=== PATIENT | female | born 1940 | race Caucasian/White ===

== ENCOUNTER 2020-03-21 14:11 | Inpatient (IN) | payer MEDICARE ==
[~2020-03-21] VITALS: Ht 165.1 cm; Wt 81.3 kg
[~2020-03-21 14:11] MED LIST: ALLO300T PO; CLON0.5T4 PO; CRESTOR5 MG PO; FISH12002 PO; FURO-69 PO; MAGN400C PO; POTA10CA PO
[2020-03-21] MEDS ORDERED: ALPRAZolam 0.25 MG TABLET PO PRN (16:15)
[2020-03-21] MEDS ORDERED: ALBUTEROL SULFATE 2.5 MG/3 ML NEBU. NEB PRN (16:15)
[2020-03-21] MEDS ORDERED: NICOTINE POLACRILEX GUM 2 MG GUM. BC PRN (16:15)
[2020-03-21] MEDS ORDERED: BUDE0.5A11 NEB (16:26)
[2020-03-21] MEDS ORDERED: ALPR0.254 PO (16:26)
[2020-03-21] MEDS ORDERED: LACT1CAP19 PO (16:26)
[2020-03-21] MEDS ORDERED: VANC125C3 PO (16:26)
[2020-03-21] MEDS ORDERED: LIDO700A21 TP (16:26)
[2020-03-21] MEDS ORDERED: NICO2GUM5 BC (16:26)
[2020-03-21] MEDS ORDERED: PANT40TA3 PO (16:26)
[2020-03-21] MEDS ORDERED: FURO40TA4 PO (16:26)
[2020-03-21] MEDS ORDERED: OXYC1TAB15 PO (16:26)
[2020-03-21] MEDS ORDERED: ALBU2.5V5 NEB (16:26)
[2020-03-21] MEDS ORDERED: ZOLP5TAB5 PO (16:26)
[2020-03-21] MEDS ORDERED: CAPS42.513 TP (16:26)
[2020-03-21] MEDS ORDERED: CLOP75TA PO (16:26)
[2020-03-21] MEDS ORDERED: CLON0.5T4 PO (16:26)
[2020-03-21] MEDS ORDERED: NICO1PAT27 TD (16:26)
[2020-03-21] MEDS ORDERED: MULT-114 PO (16:26)
[2020-03-21] MEDS ORDERED: OMEG1CAP50 PO (16:26)
[2020-03-21] MEDS ORDERED: ASPI-630 PO (16:26)
[2020-03-21] MEDS ORDERED: GABA-586 PO (16:26)
[2020-03-21] MEDS ORDERED: ENOX40DI SQ (16:26)
[2020-03-21] MEDS: VANCOMYCIN 125 MG/2.5 ML ORAL SOLUTION. PO SCH ×2 (17:00→21:31)
[2020-03-21] MEDS ORDERED: CAPSAICIN 0.025% TOPICAL CREAM 60GM TUBE. TP PRN (17:00)
[2020-03-21 17:13] VITALS: BP 129/77
--- NOTE | 2020-03-21 18:33 | HP ---
ADMIT DATE: 03/21/2020 CHIEF COMPLAINT: The patient is a 79-year-old female patient who was transferred from [facility] to continue with antibiotic for her diverticulitis as well as vancomycin for C. diff colitis. Continue with physical and occupational therapy and nutritional support. HISTORY OF PRESENT ILLNESS: The patient was admitted to [facility] on 03/10/2020 with a complaint of abdominal pain and was diagnosed with diverticulitis. Apparently, she came to the Emergency Room with worsening of her abdominal pain that has been going on for 10 days. She rated at that time as 10/10 in severity, aching in quality, originally started about a month and half ago, but has worsened over the last 10 days. The pain radiates all over her abdomen. She stated that she does not have a bowel movement every day and does not have any extreme straining. She denied at that time any fever, chills, chest pain, shortness of breath, diarrhea or bloody stool or dysuria. She did say that she has history of diverticulitis in the past and she was extensively investigated and she has had a CT scan of the abdomen and pelvis, which showed that she had diverticulitis of the mid to distal sigmoid colon with a peridiverticular abscess measuring 3.4 x 3.1. No definite fistula to the bladder, uterus or vagina is noted. There is gas is identified within the vagina, which is nonspecific. Close followup is recommended. Has bilateral adrenal masses, indeterminate left adrenal mass measures 2.3 x 2. Findings favors benign etiology given stability since 11/01/2013. She was found also have infrarenal abdominal aortic aneurysm measuring 4.5 x 4.4 cm with dense calcified and noncalcified atheromatous plaques identified in the infrarenal abdominal aorta, previously measured 2.8 x 2.6 cm on 11/01/2013 has definitely enlarged. She was basically treated with IV fluids initially in the form of ceftriaxone and Flagyl and was started on a clear liquid diet. She was seen in consultation by the Surgical team, Infectious Disease team as well as the vascular surgeon. Her antibiotic was eventually switched to Zosyn and the interventional radiologist was consulted for possible drainage of the abscess. She was seen also in consultation by the rental manager and basically he recommended IV antibiotic and also recommended to consult the interventional radiologist for drainage. She is known to have severe peripheral vascular disease and has had stent to her right lower extremity done by Dr. Keller. She was seen also by the vascular surgeon as she has marked bluish discoloration of her right third, fourth and fifth toes and basically was diagnosed with advanced peripheral arterial disease, this is a right lower extremity, bypass graft is patent. She does have high-grade stenosis at the distal anastomosis based on the CT angiogram and underwent apparently a balloon angioplasty of the distal anastomosis to maintain bypass graft patency. She has been chronically collateralized on the left, have no symptoms of rest pain in either lower extremity. Unfortunately, while there, she also developed diarrhea and was found to be positive for C. diff toxins and therefore, she was started on oral vancomycin and once stabilized, she was transferred to [facility] swing bed. PAST MEDICAL HISTORY: Significant for congestive heart failure, coronary artery disease, peripheral vascular disease, gastroesophageal reflux disease, diverticulosis, anxiety disorder as well as type 2 diabetes. PAST SURGICAL HISTORY: Significant for stenting. She does have bypass graft to the right lower extremity. She also underwent a balloon angioplasty had bilateral cataract extraction. She also underwent esophagogastroduodenoscopy and colonoscopy about 5 years ago. FAMILY HISTORY: She has one brother who is still alive at the age of 82 and apparently continued to be functional. Her sister , although she does not know her age when she or the cause of her . Her father because of myocardial infarction at the age of 85. Mother at the age of 88 because of complication of peripheral vascular disease. SOCIAL HISTORY: She is , has moved to live with her daughter. She has 1 son and 1 daughter. She smoked 1 pack a day since she was 17 years old and continued to smoke. She does not drink alcohol or use any recreational drugs. She worked in a [employer]. ALLERGIES: She has no known drug allergies. MEDICATIONS: She was transferred to [facility] to continue on following medications: Aspirin 81 mg once a day, Pulmicort 0.5 mg/2 mL nebulizer twice a day, clonazepam 0.5 mg daily, formoterol fumarate 20 mcg/2 mL vial by nebulizer once a day, furosemide 20 mg once a day, gabapentin 300 mg once a day, multivitamin 1 tablet once a day, omega-3 fatty acid 1000 mg once a day, polyethylene glycol 17 grams once a day. She was also discharged on Augmentin 875 mg twice a day and vancomycin 125 mg 4 times a day. PHYSICAL EXAMINATION: GENERAL: When I examined her this afternoon, she was sitting comfortably in her chair, eating her dinner, in no apparent distress. She was pale, not jaundiced, cyanosis or thyromegaly. No jugular venous distention. No lower limb edema. VITAL SIGNS: Her heart rate was 84, blood pressure was 129/77, temperature was 98, respiratory rate was 22 and oxygen saturation was 94% on 4 liters of oxygen. HEAD, EYES, EARS, NOSE AND THROAT: Showed normocephalic and atraumatic. NECK: Supple. HEART: Showed normal first and second heart sounds. No gallop or murmur. CHEST: Shows central trachea, equally reduced expansion, reduced air entry, vesicular sounds, very few scattered rhonchi. I could not see any crepitation. ABDOMEN: Distended, soft, nontender. NEUROLOGIC: She is awake, alert, responding appropriately. All cranial nerves intact. EXTREMITIES: She moves extremities without difficulty. She ambulates with a walker. Her extremities showed no clubbing or edema. Her legs seem to be cyanosed, apparently has been chronic like that. LABORATORY DATA: Her most recent lab work done at [facility] showed her white cell count was 7300, hemoglobin 9.7, hematocrit 30, MCV 85 and platelet count of 158,000 with normal manual differential. On admission, her white cell count was 16,400. Her chemistry showed a serum sodium of 145, potassium 3.8, chloride 103, bicarbonate 41, anion gap of 1, BUN 9, creatinine 1.2, estimated GFR was 43 mL per minute. Her glucose was 88, calcium was 8.3. ASSESSMENT AND PLAN: In summary, this is a 79-year-old female patient who was admitted to [facility] with: 1. 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 which showed peridiverticular abscess measuring 3.4 x 3.1 cm. She has bilateral adrenal masses, indeterminate left adrenal mass measures 2.3 x 2. Findings favors benign etiology given stability since 11/01/2013. She was found to have also an infrarenal abdominal aortic aneurysm measuring 4.5 x 4.4 cm, peripheral vascular disease, status post angioplasty. Sepsis due to sigmoid diverticulosis, resolved. She is here to continue with oral antibiotic. She is known to have chronic obstructive pulmonary disease, chronic hypoxic respiratory failure. She is oxygen dependent for almost 8 years now and she has also severe peripheral vascular disease. She has also Clostridium difficile colitis, for which she is now on oral vancomycin. Apparently, she underwent right lower extremity angiography, angioplasty of the right anterior tibial artery and angioplasty of the popliteal artery and the anastomosis in the right lower extremity, femoral popliteal bypass graft. We will continue obviously with oral antibiotics in the form of Augmentin as well as vancomycin. We will continue all her other medications. We will start physical and occupational therapy. ROMAN JAMES MD DR: MAGDALENE/analy JOB#: [id number] / [id number]
[2020-03-21] MEDS: BUDESONIDE 0.5 MG/2 ML NEBU NEB SCH (20:09)
[2020-03-21 20:51] VITALS: BP 114/68
[2020-03-21] MEDS: PATCH REMOVAL. MC SCH (21:00)
[2020-03-21] MEDS: ZOLPIDEM 5 MG TABLET. PO PRN (21:31)
[2020-03-21] MEDS: LACTOBACILLUS RHAMNOSUS GG 1 CAPSULE. PO SCH (21:31)
[2020-03-21] MEDS: AMOXICILLIN/K CLAV 875/125MG TABLET. PO SCH (21:31)
[2020-03-21] MEDS: GABAPENTIN 300 MG CAPSULE. PO SCH (21:31)
[2020-03-21 23:36] VITALS: BP 96/62
[2020-03-22 05:05] VITALS: BP 88/57
[2020-03-22 06:24] VITALS: BP 98/56
[2020-03-22 06:46] LABS: HEMATOCRIT 30.2 % (36.0-47.0); HEMOGLOBIN 9.6 g/dL (12.0-15.5); RED BLOOD COUNT 3.48 x10^6/uL (3.50-5.40); WHITE BLOOD COUNT 9.6 x10^3/uL (4.0-11.0)
[2020-03-22 07:45] LABS: ALBUMIN 2.3 g/dL (3.4-5.0); ALBUMIN/GLOBULIN RATIO 0.6 (1.0-1.7); CALCIUM 8.1 mg/dL (8.5-10.1); CREATININE 1.1 mg/dL (0.6-1.0); TOTAL BILIRUBIN 0.3 mg/dL (0.2-1.0); TOTAL PROTEIN 6.1 g/dL (6.4-8.2)
[2020-03-22] MEDS: clonazePAM 0.5 MG TABLET PO SCH (08:33)
[2020-03-22] MEDS: AMOXICILLIN/K CLAV 875/125MG TABLET. PO SCH ×2 (08:33→20:47)
[2020-03-22] MEDS: MULTIVITAMIN with MINERAL TABLET. PO SCH (08:33)
[2020-03-22] MEDS: ASPIRIN CHEWABLE 81 MG TABLET. PO SCH (08:33)
[2020-03-22] MEDS: LACTOBACILLUS RHAMNOSUS GG 1 CAPSULE. PO SCH ×2 (08:33→20:47)
[2020-03-22] MEDS: PANTOPRAZOLE 40 MG TABLET. PO SCH (08:33)
[2020-03-22] MEDS: CLOPIDOGREL BISULFATE 75 MG TABLET PO SCH (08:33)
[2020-03-22] MEDS: OMEGA-3 FATTY ACIDS/FISH OIL 1,000 MG CAPSULE. PO SCH (08:33)
[2020-03-22] MEDS: ENOXAPARIN 40 MG/0.4 ML SYRINGE. SQ SCH (08:36)
[2020-03-22] MEDS: LIDOCAINE (700MG/PATCH) PATCH. TP SCH (08:36)
[2020-03-22] MEDS: NICOTINE 7MG PATCH. TD SCH (08:36)
[2020-03-22] MEDS: VANCOMYCIN 125 MG/2.5 ML ORAL SOLUTION. PO SCH ×4 (08:37→20:47)
[2020-03-22] MEDS: POTASSIUM BICARB 20 MEQ EFFERVESCENT TABLET. FT SCH ×2 (09:16→14:11)
[2020-03-22] MEDS: FUROSEMIDE 40 MG TABLET PO SCH (09:16)
[2020-03-22] MEDS: oxyCODONE/APAP 5/325 1 TAB TABLET PO PRN ×2 (09:17→19:37)
[2020-03-22] MEDS: BUDESONIDE 0.5 MG/2 ML NEBU NEB SCH ×2 (09:40→20:13)
[2020-03-22 15:39] VITALS: BP 104/67
[2020-03-22] MEDS ORDERED: POTASSIUM CHLORIDE 20 MEQ TABLET.ER. PO ONE (16:00)
--- NOTE | 2020-03-22 18:27 | PN ---
DATE: 03/22/2020 SUBJECTIVE: The patient is sitting in her chair comfortably in no apparent distress. She apparently has had 2 bowel movements, continued to have abdominal pain, but denied any nausea or vomiting. Denied any dizziness or lightheadedness. She did participate with physical therapy. PHYSICAL EXAMINATION: GENERAL: When I examined her, she was pale, but no jaundice, cyanosis or thyromegaly. No jugular venous distention. Mild bilateral lower limb edema. VITAL SIGNS: Her heart rate was 71, blood pressure was 104/67, temperature 97.5, respiratory rate was 17 and oxygen saturation was 96% on 4 liters of oxygen. HEAD, EYES, EARS, NOSE AND THROAT: Normocephalic, atraumatic. NECK: Supple. HEART: Showed normal first and second heart sounds. No gallop, rub or murmur. CHEST: Clear to auscultation. No crepitation or rhonchi. ABDOMEN: Distended, soft, nontender. No guarding or rigidity. No organomegaly. All hernial orifice intact. Bowel sounds normal. NEUROLOGIC: She is grossly intact. She ambulates with a walker. Her intake and output were incompletely recorded. LABORATORY DATA: Showed a white cell count 9600, hemoglobin 9.6, hematocrit 30, MCV 87, and platelet count of 180,000. Her serum sodium was 144, potassium 3, chloride 99, bicarbonate 44, anion gap of 1, BUN 9, creatinine 1.1, estimated GFR was 48 mL per minute. Her glucose was 92, calcium was 8.1. Total bilirubin, AST, ALT, alkaline phosphatase were normal. Total protein was 6.1, and albumin 2.3. ASSESSMENT: 1. Acute diverticulitis, which she continues to be on oral Augmentin. 2. Peridiverticular abscess measuring 3.4 x 3.1. 3. Infrarenal abdominal aortic aneurysm that is enlarging. 4. Peripheral vascular disease, status post angioplasty. 5. Sepsis due to sigmoid diverticulosis, resolved. 6. Clostridium difficile colitis, switching to oral vancomycin. 7. Chronic obstructive pulmonary disease. 8. Chronic hypoxic respiratory failure, oxygen dependent. 9. Hypokalemia. PLAN: My plan is to start potassium supplement. We will give her 40 mEq once tonight and then start her on 20 mEq 3 times a day. She is on IV Lasix and she also having diarrhea. I will repeat her labs again tomorrow to make sure the potassium is within normal range. ROMAN JAMES MD DR: MAGDALENE/analy JOB#: [id number] / [id number]
[2020-03-22 19:20] VITALS: BP 120/73
[2020-03-22] MEDS: GABAPENTIN 300 MG CAPSULE. PO SCH (20:47)
[2020-03-22] MEDS: PATCH REMOVAL. MC SCH (20:47)
[2020-03-22] MEDS: POTASSIUM CHLORIDE 20 MEQ TABLET.ER. PO SCH (20:47)
[2020-03-23 06:49] LABS: BLOOD UREA NITROGEN 6 mg/dL (7-20); CALCIUM 8.1 mg/dL (8.5-10.1); CHLORIDE 100 mmol/L (98-107); CREATININE 1.2 mg/dL (0.6-1.0); GFR 43.4; GLUCOSE 94 mg/dL (70-99); MAGNESIUM 1.7 mg/dL (1.8-2.4); SODIUM 145 mmol/L (136-145)
[2020-03-23 06:50] LABS: CARBON DIOXIDE > 45 mmol/L (21-32)
[2020-03-23 08:07] VITALS: BP 106/50
[2020-03-23] MEDS: AMOXICILLIN/K CLAV 875/125MG TABLET. PO SCH ×2 (08:47→21:36)
[2020-03-23] MEDS: ASPIRIN CHEWABLE 81 MG TABLET. PO SCH (08:47)
[2020-03-23] MEDS: POTASSIUM CHLORIDE 20 MEQ TABLET.ER. PO SCH ×3 (08:48→21:37)
[2020-03-23] MEDS: NICOTINE 7MG PATCH. TD SCH (08:48)
[2020-03-23] MEDS: OMEGA-3 FATTY ACIDS/FISH OIL 1,000 MG CAPSULE. PO SCH (08:48)
[2020-03-23] MEDS: LIDOCAINE (700MG/PATCH) PATCH. TP SCH (08:48)
[2020-03-23] MEDS: PANTOPRAZOLE 40 MG TABLET. PO SCH (08:48)
[2020-03-23] MEDS: FUROSEMIDE 40 MG TABLET PO SCH (08:48)
[2020-03-23] MEDS: CLOPIDOGREL BISULFATE 75 MG TABLET PO SCH (08:48)
[2020-03-23] MEDS: LACTOBACILLUS RHAMNOSUS GG 1 CAPSULE. PO SCH ×2 (08:48→21:37)
[2020-03-23] MEDS: MULTIVITAMIN with MINERAL TABLET. PO SCH (08:48)
[2020-03-23] MEDS: clonazePAM 0.5 MG TABLET PO SCH (08:48)
[2020-03-23] MEDS: ENOXAPARIN 40 MG/0.4 ML SYRINGE. SQ SCH (08:49)
[2020-03-23] MEDS: VANCOMYCIN 125 MG/2.5 ML ORAL SOLUTION. PO SCH ×4 (08:49→21:37)
[2020-03-23] MEDS: oxyCODONE/APAP 5/325 1 TAB TABLET PO PRN (09:32)
[2020-03-23] MEDS: BUDESONIDE 0.5 MG/2 ML NEBU NEB SCH ×2 (10:18→21:00)
--- OUTSIDE RECORDS SUMMARY | 2020-03-23 14:21 | XMS REPORT | Patient Health Record ---
Author Author [facility] Organization [facility] Address Unknown Phone Unavailable Care Team Providers Care Deli Clerk Name Role Phone LASHAWN CLAUDINE Unavailable [phone] BJORN MCINTYRE Unavailable [phone] Ghulam Pantoja Unavailable [phone] GAGAN Calloway Unavailable [phone] ALIYA GUTIERREZ Unavailable [phone] PROBLEMS Type Condition ICD9-CM Code NFL66-WE Code Onset Dates Condition S tatus SNOMED Code Notes Problem PAD (peripheral artery disease) I73.9 Active 665495928 Problem Vitamin D insufficiency E55.9 Active 80802001 Problem Gout M10.9 Active 61909490 Problem Diverticulosis K57.90 Active 507422832 Problem Cigarette nicotine dependence, uncomplicated F17.2 10 Active 11163020 Problem BMI 32.0-32.9,adult Z68.32 Active 543264455 Problem GERD (gastroesophageal reflux disease) K21.9 A ctive 627990873 Problem COPD (chronic obstructive pulmonary disease) J44.9 Active 72034798 Problem HLD (hyperlipidemia) E78.5 Active 68797529 Problem Constipation K59.00 Active 90752171 ALLERGIES No Known Allergies ENCOUNTERS from 1940 to 2020-03-23 Encounter Location Date Provider Diagnosis [facility] [place] [address] [place] [address] Feb, CLAUDINE LASHAWN [facility] [place] [address] [place] [address] Feb, CLAUDINE HARDIN Hyponatremia E87.1 ; Fatigue R53.83 ; Generalized weakness R53.1 ; PAD (peripheral artery disease) I73.9 ; Cigarette nicotine dependence, uncomplicated F17.210 ; COPD (chronic obstructive pulmonary disease) J44.9 ; HLD (hyperlipidemia) E78.5 ; Anemia D64.9 ; History of gout Z87.39 ; Hypochloremia E87.8 ; Gout M10.9 and Personal history of peptic ulcer disease Z87.11 [facility] [place] [address] [place] [address] Feb, CLAUDINE HARDIN LLQ abdominal pain R10.32 ; Fatigue R53.83 ; Generalized weakness R53.1 ; Diverticulosis K57.90 ; Varicose veins of both lower extremities I83.93 ; Constipation K59.00 ; PAD (peripheral artery disease) I73.9 ; Cigarette nicotine dependence, uncomplicated F17.210 ; COPD (chronic obstructive pulmonary disease) J44.9 ; HLD (hyperlipidemia) E78.5 and Anemia D64.9 [facility] [place] [facility] [address] [place] [address] Apr, CLAUDINE HARDIN [facility] [place] [facility] [address] [place] [address] Mar, CLAUDINE HARDIN [facility] [place] [facility] [address] [place] [address] Mar, CLAUDINE BARRONOTTE PAD (peripheral artery disea se) I73.9 ; Cigarette nicotine dependence, uncomplicated F17.210 ; COPD (chronic obstructive pulmonary disease) J44.9 ; Olecranon bursitis of right elbow M70.21 ; Effusion of right olecranon bursa M25.421 ; Leg swelling M79.89 ; GERD (gastroesophageal reflux disease) K21.9 ; Gout M10.9 ; Foot pain M79.673 ; Fatigue R53.83 and Vitamin D insufficiency E55.9 [facility] [place] [facility] [address] [place] [address] Oct, CLAUDINE BARRONOTTE Olecranon bursitis, left elb ow M70.22 ; Effusion of left elbow M25.422 ; PAD (peripheral artery disease) I73.9 and Cigarette nicotine dependence, uncomplicated F17.210 [facility] [address] [facility] [address] Jun, CLAUDINE HARDIN [facility] [address] [place] [address] Oct, CLAUDINE HARDIN PAD (peripheral artery disea se) 443.9 ; Leg swelling 729.81 ; Abdominal swelling, generalized 789.37 ; Tobacco use disorder 305.1 and Anxiety 300.00 [facility] [place] [address] [place], [place] [id number] Sep, ALIYA GUTIERREZ Proctitis 569.49 and Gastropathy 537.9 [facility] [address] [facility] [place] [address] Aug, zzzSTEWART zzzGROTE [facility] [address] [place] [address] Jun, zzzSTEWART zzzGROTE URI (upper respiratory infec tion) 465.9 ; Pharyngitis, Acute 462 ; Adenitis NOS 289.3 ; Airway obstruction, chronic, NEC 496 ; Obesity NOS 278.00 ; MALAISE AND FATIGUE NEC 780.79 ; Gouty arthritis NOS 274.9 ; Vitamin D deficiency 268.9 and Hyperlipemia 272.4 IMMUNIZATIONS Vaccine Route Administration Date Status Lidocaine 1% 10 mg / ml Unknown Apr 12, 2019 Administ ered Kenalog 40mg Unknown Apr 12, 2019 Administered Kenalog 40mg OTH Other/Miscellaneous November 04, 2018 Administ ered Lidocaine 1% 10 mg / ml OTH Other/Miscellaneous November 04, 2018 Administered SOCIAL HISTORY Sex Assigned At : Social History Observation Description Sex Assigned At Unknown REASON FOR REFERRAL from 1940 to 2020-03-23 Reason ccd Referring Provider First Name NUZHAT Referring Provider Last Name REMA Referring Provider Specialty Neurology Referring Provider email [email or web address] Referred Provider N/A, [email or web address] VITAL SIGNS from 1940 to 2020-03-23 Height 65 in Feb, Weight wheelchair lbs Feb, BMI 32.28 kg/m2 Mar, Temperature 96.8 degrees Fahrenheit Feb, Oximetry 96 % Feb, Blood pressure systolic 100 mm Hg Feb, Blood pressure diastolic 62 mm Hg Feb, MEDICATIONS Medication SIG (Take, Route, Frequency, Duration) Start Date En d Date Status allopurinol 300 mg 1 tab(s) orally once a day for 30 Active pantoprazole 40 mg 1 tab(s) orally once a day for 30 day(s) Active ASA 81mg one orally daily for 30 day(s) Active Fish Oil 1000 mg 1 cap(s) orally 2 times a day for 30 day(s) Active potassium chloride 20meq 1 cap(s) orally once a day for 3 dose(s) Active Plavix 75 mg 1 tab(s) orally once a day for 30 day(s) Not-Taking Lipitor 40 mg 1 tab(s) orally once a day for 30 day(s) Mar, Not-Taking Vitamin D 400 IU 1 tab orally once a day for 30 day(s) Active Lasix 80 mg 1 tab(s) orally once a day for 30 Active PROCEDURES No Information RESULTS No Results REASON FOR VISIT Labs, tired, weak wants labwork, constipation, stomach , med issues, lab results and new rx, meds refill, pt wants to stop PLavix, Rt elbow needs drained, pt has not been seen for over 4 years. She has developed a large pocket of fluid over left elbow a month ago. She is jaymie anxious about what you will do to her today., Message, Stomach & feet swelling x 2 weeks, wants lasix and xanax , stomach pain, Colonoscopy results from March, no new problems since colonoscopy MEDICAL (GENERAL) HISTORY Type Description Date Surgical History colonoscopy Surgical History EGD Hospitalization History No Hospitalization history informati on Goals Section No Information Health Concerns No Information MEDICAL EQUIPMENT No Information MENTAL STATUS No Information FUNCTIONAL STATUS No Information ASSESSMENTS Encounter Date Diagnosis Notes Oct, Olecranon bursitis, left elbow (ICD-10 - M70.22) Mar, Gout (ICD-10 - M10.9) Oct, PAD (peripheral artery disease) (ICD9-CM - 443.9) Jun, Vitamin D deficiency (ICD9-CM - 268.9) Feb, LLQ abdominal pain (ICD-10 - R10.32) Feb, Anemia (ICD-10 - D64.9) Mar, PAD (peripheral artery disease) (ICD-10 - I73.9) Feb, Cigarette nicotine dependence, uncomplic ated (ICD-10 - F17.210) Mar, GERD (gastroesophageal reflux disease) ( ICD-10 - K21.9) Jun, Gouty arthritis NOS (ICD9-CM - 274.9) Sep, Proctitis (ICD9-CM - 569.49) Feb, HLD (hyperlipidemia) (ICD-10 - E78.5) Jun, URI (upper respiratory infection) (ICD9- CM - 465.9) Feb, PAD (peripheral artery disease) (ICD-10 - I73.9) Feb, Diverticulitis of intestine with abscess (ICD-10 - K57.80) Feb, Hyponatremia (ICD-10 - E87.1) Feb, Diverticulitis of intestine with abscess (ICD-10 - K57.80) Feb, Diverticulitis of intestine with abscess (ICD-10 - K57.80) Feb, COPD (chronic obstructive pulmonary dise ase) (ICD-10 - J44.9) Feb, Constipation (ICD-10 - K59.00) Feb, Varicose veins of both lower extremities (ICD-10 - I83.93) Mar, Effusion of right olecranon bursa (ICD-1 0 - M25.421) Jun, MALAISE AND FATIGUE NEC (ICD9-CM - 780.7 9) Feb, Cigarette nicotine dependence, uncomplic ated (ICD-10 - F17.210) Feb, PAD (peripheral artery disease) (ICD-10 - I73.9) Feb, Diverticulosis (ICD-10 - K57.90) Oct, Anxiety (ICD9-CM - 300.00) Jun, Obesity NOS (ICD9-CM - 278.00) Mar, Leg swelling (ICD-10 - M79.89) Mar, Olecranon bursitis of right elbow (ICD-1 0 - M70.21) Feb, Generalized weakness (ICD-10 - R53.1) Mar, COPD (chronic obstructive pulmonary dise ase) (ICD-10 - J44.9) Jun, Airway obstruction, chronic, NEC (ICD9-C M - 496) Feb, Generalized weakness (ICD-10 - R53.1) Jun, Adenitis NOS (ICD9-CM - 289.3) Feb, Fatigue (ICD-10 - R53.83) Oct, PAD (peripheral artery disease) (ICD-10 - I73.9) Oct, Abdominal swelling, generalized (ICD9-CM - 789.37) Oct, Cigarette nicotine dependence, uncomplic ated (ICD-10 - F17.210) Oct, Tobacco use disorder (ICD9-CM - 305.1) Feb, Personal history of peptic ulcer disease (ICD-10 - Z87.11) Jun, Pharyngitis, Acute (ICD9-CM - 462) Feb, Anemia (ICD-10 - D64.9) Feb, Diverticulitis of intestine with abscess (ICD-10 - K57.80) Mar, Vitamin D insufficiency (ICD-10 - E55.9) Oct, Leg swelling (ICD9-CM - 729.81) Sep, Gastropathy (ICD9-CM - 537.9) Feb, Gout (ICD-10 - M10.9) Feb, Diverticulitis of intestine with abscess (ICD-10 - K57.80) Mar, Fatigue (ICD-10 - R53.83) Feb, History of gout (ICD-10 - Z87.39) Feb, Diverticulitis (ICD-10 - K57.92) Feb, Hypochloremia (ICD-10 - E87.8) Feb, Diverticulitis (ICD-10 - K57.92) Feb, HLD (hyperlipidemia) (ICD-10 - E78.5) Mar, Cigarette nicotine dependence, uncomplic ated (ICD-10 - F17.210) Oct, Effusion of left elbow (ICD-10 - M25.422 ) Feb, Fatigue (ICD-10 - R53.83) Jun, Hyperlipemia (ICD9-CM - 272.4) Feb, COPD (chronic obstructive pulmonary dise ase) (ICD-10 - J44.9) Mar, Foot pain (ICD-10 - M79.673) PLAN OF TREATMENT Treatment Notes Assessment Notes Clinical Notes Generalized weakness She had concerns about dehyd ration. Labs today. Hold lasix for a couple days. Continue pushing water intake. No evidence of dehydration currently. COPD (chronic obstructive pulmonary disease) On oxygen. Sees Dr Grace. Cigarette nicotine dependence, uncomplicated she is on oxyge n due to smoking Generalized weakness Rechecking labs today. I di d give her an order for Rollator walker with wheels and seat for her to try and get some more exercise and to get moving around a little more frequently. PAD (peripheral artery disease) Only taking plavix a c ouple times per week according to patient. Something we are going to monitor Olecranon bursitis of right elbow Aspiration done toda y at the right elbow. Cleaned with iodine and injected 2mL of lidocaine. Used a 22g needle and while leaving it in, we aspirated 17.5mL of fluid off the elbow/bursa. She tolerated well and we injected then into the same needle 1mL kenalog. No evidence of infection. The aspiration was serous fluid mixed with some blood. No cultures sent off since it was okay and last check on left elbow was okay as well. Effusion of right olecranon bursa Recommended elbow pa ds to use and avoid resting/bumping on hard surface. Anxiety She used to be on Xanax. We will see how she does with the Klonopin. If she is needing this regularly, we may want to try an SSRI. Anemia Checking for labs. Vitamin D insufficiency Checking for lab purposes. PAD (peripheral artery disease) on plavix but she does n't take it every day. she substitutes with ASA when she does not take it. she does have history of GI bleed, so that has to be monitored closely. Abdominal swelling, generalized She mentions that she did have a liver workup which was okay. I will see what her LFT's look like on labs today. Personal history of peptic ulcer disease . monitoring this with her hemoglobin and infrequent use of Plavix Foot pain Stopping IBU with GI history. Trial natan pentin. Proctitis Reviewed colonoscopy results as well as EGD results and biopsies discussed general: Health and her diet. Recommended fiber therapy which she is taking Metamucil. Due to her family history of colon cancer have recommended a follow-up colonoscopy in 5 years. All of her questions were answered to her satisfaction. Total time 13 minutes Anemia Hemoglobin at 10.9. Recheck ing today. Her ferritin levels were high and iron levels were low on her last check with mildly elevated TIBC PAD (peripheral artery disease) Set up with cardiology referral for further evaluation as I would be concerned about CAD as well. I want to get further workup with this. I will probably want to look at starting her on cholesterol medication as I did check her former cholesterol are lab level and her LDL was 155. We will most likely set her up with a statin therapy when I get lab results back. I also want to see a vehicle leasing and rental manager orders but she may need stress testing and possibly an echocardiogram. I did pull up a previous CT scan of her chest from a year ago and it didn't necessarily show any overt enlargement of her heart. History of gout . remains on allopurinol due to concerns of gout. Since she has not had any issues with a flare in quite some time. I am rechecking her uric acid levels and want her to try cutting her allopurinol in half for now. I do see a uric acid level in normal range at 5.5 last year in March 2019 Olecranon bursitis, left elbow bursal effusion which w e aspirated. Cleansed area with iodine and injected 2.5mL lidocaine into the area to numb. with the same needle in place, we then aspirated 20mL of yellow serous drainage. no purulent discharge or infection noted. we will send that off for culture and anaylsis. since there is no evidence of infection, we then place 1mL kenalog into the same site with the same needle without removing. she tolerated well. rest elbow and avoid hard surfaces. f/u if recurrence or pain. COPD (chronic obstructive pulmonary disease) On oxygen. PAD (peripheral artery disease) on plavix but she does n't take it every day. she substitutes with ASA when she does not take it. she does have history of GI bleed, so that has to be monitored closely. She would like to stop Plavix but I think with previous stent placement, stay on her current regimen of Plavix most days and substitute with ASA if she does not take it on a particular day. Not going to have her take both daily with history of GI bleed. HLD (hyperlipidemia) Not on cholesterol medicatio n. Checking lipids with her PAD. LLQ abdominal pain She says her abd pain is bet ter but still lingering some with LLQ. Took laxative that helped last week. Doing workup with labs to rule out infection or need for CT scan. Can proceed with that if there is any indication. Watch constipation. Continue Metamucil. Can take miralax prn. Fatigue Routine labs today. Hyponatremia Rechecking labs today. I wa nt her to decrease her Lasix to just a quarter of a pill on an as-needed basis when she does take it to try and limit higher doses. Still take the potassium anytime she takes the Lasix. Leg swelling We will start this temporari ly for now while further labs are pending. Hypochloremia . recheck toda COPD (chronic obstructive pulmonary disease) On oxygen. HLD (hyperlipidemia) Not on cholesterol medicatio n. Her cholesterol numbers are extremely high but she cannot tolerate statins. Perhaps Repatha is an option PAD (peripheral artery disease) Only taking plavix a c ouple times per week according to patient. Cigarette nicotine dependence, uncomplicated she is on oxyge n due to smoking Fatigue Labs today Fatigue Labs today Treatment Notes Test Name Order Date BASIC METABOLIC PANEL 2020-03-23 Referrals Referral Date Details edema, MELISSA PASNOORI, [address] [facility], [place], [place], [id number], [facility] Insurance Providers Payer Name Payer Address Payer Phone Insured Name Patient Relati onship to Insured Coverage Start Date Coverage End Date [place] [address] [facility] [phone] Nancy Carpenter self
[2020-03-23 20:59] VITALS: BP 102/63
[2020-03-23] MEDS: PATCH REMOVAL. MC SCH (21:00)
[2020-03-23] MEDS: GABAPENTIN 300 MG CAPSULE. PO SCH (21:36)
[2020-03-24 08:06] VITALS: BP 129/50
[2020-03-24] MEDS: LIDOCAINE (700MG/PATCH) PATCH. TP SCH (09:10)
[2020-03-24] MEDS: NICOTINE 7MG PATCH. TD SCH (09:10)
[2020-03-24] MEDS: ENOXAPARIN 40 MG/0.4 ML SYRINGE. SQ SCH (09:10)
[2020-03-24] MEDS: OMEGA-3 FATTY ACIDS/FISH OIL 1,000 MG CAPSULE. PO SCH (09:11)
[2020-03-24] MEDS: AMOXICILLIN/K CLAV 875/125MG TABLET. PO SCH ×2 (09:11→20:33)
[2020-03-24] MEDS: MULTIVITAMIN with MINERAL TABLET. PO SCH (09:11)
[2020-03-24] MEDS: oxyCODONE/APAP 5/325 1 TAB TABLET PO PRN (09:11)
[2020-03-24] MEDS: LACTOBACILLUS RHAMNOSUS GG 1 CAPSULE. PO SCH ×2 (09:11→20:33)
[2020-03-24] MEDS: PANTOPRAZOLE 40 MG TABLET. PO SCH (09:11)
[2020-03-24] MEDS: ASPIRIN CHEWABLE 81 MG TABLET. PO SCH (09:11)
[2020-03-24] MEDS: POTASSIUM CHLORIDE 20 MEQ TABLET.ER. PO SCH ×3 (09:11→20:33)
[2020-03-24] MEDS: CLOPIDOGREL BISULFATE 75 MG TABLET PO SCH (09:11)
[2020-03-24] MEDS: clonazePAM 0.5 MG TABLET PO SCH (09:11)
[2020-03-24] MEDS: FUROSEMIDE 40 MG TABLET PO SCH (09:12)
[2020-03-24] MEDS: VANCOMYCIN 125 MG/2.5 ML ORAL SOLUTION. PO SCH ×4 (09:15→20:34)
[2020-03-24] MEDS: BUDESONIDE 0.5 MG/2 ML NEBU NEB SCH ×2 (09:49→20:25)
[2020-03-24] MEDS: GABAPENTIN 300 MG CAPSULE. PO SCH (20:33)
[2020-03-24] MEDS: PATCH REMOVAL. MC SCH (21:00)
[2020-03-24 21:28] VITALS: BP 100/58
[2020-03-25 08:11] VITALS: BP 101/51
[2020-03-25] MEDS: AMOXICILLIN/K CLAV 875/125MG TABLET. PO SCH ×2 (08:25→20:44)
[2020-03-25] MEDS: MULTIVITAMIN with MINERAL TABLET. PO SCH (08:25)
[2020-03-25] MEDS: OMEGA-3 FATTY ACIDS/FISH OIL 1,000 MG CAPSULE. PO SCH (08:25)
[2020-03-25] MEDS: PANTOPRAZOLE 40 MG TABLET. PO SCH (08:26)
[2020-03-25] MEDS: FUROSEMIDE 40 MG TABLET PO SCH (08:26)
[2020-03-25] MEDS: LACTOBACILLUS RHAMNOSUS GG 1 CAPSULE. PO SCH ×2 (08:26→20:44)
[2020-03-25] MEDS: ENOXAPARIN 40 MG/0.4 ML SYRINGE. SQ SCH (08:27)
[2020-03-25] MEDS: LIDOCAINE (700MG/PATCH) PATCH. TP SCH (08:27)
[2020-03-25] MEDS: ASPIRIN CHEWABLE 81 MG TABLET. PO SCH (08:27)
[2020-03-25] MEDS: CLOPIDOGREL BISULFATE 75 MG TABLET PO SCH (08:27)
[2020-03-25] MEDS: NICOTINE 7MG PATCH. TD SCH (08:27)
[2020-03-25] MEDS: POTASSIUM CHLORIDE 20 MEQ TABLET.ER. PO SCH ×3 (08:28→20:44)
[2020-03-25] MEDS: clonazePAM 0.5 MG TABLET PO SCH (08:33)
[2020-03-25] MEDS: VANCOMYCIN 125 MG/2.5 ML ORAL SOLUTION. PO SCH ×4 (09:13→20:44)
[2020-03-25] MEDS: BUDESONIDE 0.5 MG/2 ML NEBU NEB SCH ×2 (13:08→20:29)
[2020-03-25 14:22] LABS: BASO % 0 % (0-3); EOS % 0 % (0-3); HEMATOCRIT 31.2 % (36.0-47.0); HEMOGLOBIN 9.8 g/dL (12.0-15.5); LYMPH % 10 % (24-48); MEAN CORPUSCULAR HEMOGLOBIN 28 pg (25-35); MEAN CORPUSCULAR HGB CONC 31 g/dL (31-37); MEAN CORPUSCULAR VOLUME 88 fL (79-100); MONO # 0.5 x10^3/uL (0.0-1.1); MONO % 5 % (0-9); NEUT % 85 % (31-73); PLATELET COUNT 205 x10^3/uL (140-400); RED BLOOD COUNT 3.56 x10^6/uL (3.50-5.40); RED CELL DISTRIBUTION WIDTH 16.6 % (11.5-14.5); WHITE BLOOD COUNT 10.6 x10^3/uL (4.0-11.0)
[2020-03-25 14:26] LABS: CALCIUM 8.2 mg/dL (8.5-10.1); CREATININE 1.4 mg/dL (0.6-1.0); GFR 36.4; POTASSIUM 3.9 mmol/L (3.5-5.1)
[2020-03-25 14:32] LABS: ALBUMIN 2.5 g/dL (3.4-5.0); ALBUMIN/GLOBULIN RATIO 0.6 (1.0-1.7); TOTAL BILIRUBIN 0.3 mg/dL (0.2-1.0); TOTAL PROTEIN 6.7 g/dL (6.4-8.2)
[2020-03-25 20:30] VITALS: BP 127/68
[2020-03-25] MEDS: oxyCODONE/APAP 5/325 1 TAB TABLET PO PRN (20:44)
[2020-03-25] MEDS: GABAPENTIN 300 MG CAPSULE. PO SCH (20:44)
[2020-03-25] MEDS: ZOLPIDEM 5 MG TABLET. PO PRN (20:44)
[2020-03-25] MEDS: PATCH REMOVAL. MC SCH (21:00)
[2020-03-26 08:00] VITALS: BP 110/52
[2020-03-26] MEDS: VANCOMYCIN 125 MG/2.5 ML ORAL SOLUTION. PO SCH ×4 (09:00→21:00)
[2020-03-26] MEDS: ENOXAPARIN 40 MG/0.4 ML SYRINGE. SQ SCH (09:00)
[2020-03-26] MEDS: AMOXICILLIN/K CLAV 875/125MG TABLET. PO SCH ×2 (09:27→21:00)
[2020-03-26] MEDS: POTASSIUM CHLORIDE 20 MEQ TABLET.ER. PO SCH ×3 (09:28→21:00)
[2020-03-26] MEDS: LACTOBACILLUS RHAMNOSUS GG 1 CAPSULE. PO SCH ×2 (09:28→21:00)
[2020-03-26] MEDS: PANTOPRAZOLE 40 MG TABLET. PO SCH (09:28)
[2020-03-26] MEDS: MULTIVITAMIN with MINERAL TABLET. PO SCH (09:29)
[2020-03-26] MEDS: CLOPIDOGREL BISULFATE 75 MG TABLET PO SCH (09:29)
[2020-03-26] MEDS: OMEGA-3 FATTY ACIDS/FISH OIL 1,000 MG CAPSULE. PO SCH (09:29)
[2020-03-26] MEDS: clonazePAM 0.5 MG TABLET PO SCH (09:29)
[2020-03-26] MEDS: BUDESONIDE 0.5 MG/2 ML NEBU NEB SCH ×2 (09:29→20:00)
[2020-03-26] MEDS: FUROSEMIDE 40 MG TABLET PO SCH (09:29)
[2020-03-26] MEDS: ASPIRIN CHEWABLE 81 MG TABLET. PO SCH (09:30)
[2020-03-26] MEDS: NICOTINE 7MG PATCH. TD SCH (09:31)
[2020-03-26] MEDS: LIDOCAINE (700MG/PATCH) PATCH. TP SCH (09:31)
--- NOTE | 2020-03-26 15:19 | RAD ---
CHEST AP ONLY History: Reason: worseneing shortness of breath / Spl. Instructions: / History: Comparison: November 30, [address] December 01, 2014 Findings: Bilateral interstitial thickening. No pleural effusion. Unchanged heart size. Right PICC with tip projecting over the cavoatrial junction. Postop changes left axilla. Impression: 1. Diffuse initial thickening, may relate to chronic interstitial changes although superimposed pulmonary edema or infection is possible. 2. Right PICC with tip projecting over the cavoatrial junction. Electronically signed by: Jerrell Stiles DO (03/26/2020 3:16 PM) [id number]
[2020-03-26 19:51] VITALS: BP 107/51
--- NOTE | 2020-03-26 20:38 | PN ---
DATE: 03/26/2020 SUBJECTIVE: The patient is sitting at the edge of the bed, complaining of being somewhat tired and short of breath. Cough is mostly dry with scanty whitish sputum. Denied any chest pain, denied any chills, rigors or fever. She did have 2 loose bowel movements, but denied any abdominal pain. PHYSICAL EXAMINATION: GENERAL: When I saw her this afternoon, she looked pale, no jaundice, cyanosis or thyromegaly. No jugular venous distention. No limb edema. VITAL SIGNS: Her heart rate was 71, blood pressure was 110/52, temperature was 98.4, respiratory rate 22, and oxygen saturation was 95% on 4 liters of oxygen. HEAD, EYES, EARS, NOSE AN THROAT: Normocephalic, atraumatic. NECK: Supple. HEART: Showed normal first and second heart sounds. No gallop, rub or murmur. CHEST: Shows central trachea, equal expansion, reduced air entry, vesicular sounds with bilateral basal crepitation. I could not appreciate any rhonchi. ABDOMEN: Distended, soft, nontender. No guarding or rigidity. No organomegaly. All hernial orifice intact. Bowel sounds normal. NEUROLOGIC: She is awake, alert, responding appropriately. She ambulates with a walker with standby assist. Her intake over the last 24 hours was 2200, no output was recorded. LABORATORY DATA: Her most recent lab work as of yesterday showed a white cell count of 10,600, hemoglobin 9.8, hematocrit 31, MCV 88, and platelet count 205,000. Her chemistry showed a serum sodium of 136, potassium 3.9, chloride 94, bicarbonate 44, anion gap of 2, BUN 11, creatinine 1.4, estimated GFR was 36 mL per minute. Her glucose 117, calcium was 8.2. Total bilirubin, AST, ALT, alkaline phosphatase were normal. Total protein 6.7, albumin was 2.5. ASSESSMENT: 1. Acute diverticulitis for which she continues to be on oral Augmentin. 2. Peridiverticular abscess measuring 3.4 x 3.1. 3. Infrarenal abdominal aortic aneurysm that is enlarging. 4. Peripheral vascular disease, status post angioplasty. 5. Sepsis due to sigmoid diverticulitis, resolved. 6. Clostridium difficile colitis for which she is now on oral vancomycin. 7. Chronic obstructive pulmonary disease. 8. Chronic hypoxic respiratory failure, oxygen dependent. 9. Hypokalemia. PLAN: My plan is to basically arrange for a chest x-ray. I will repeat her labs including CBC, CMP and BMP as she has a PICC line. I will switch her to IV Lasix tomorrow morning and see how she responds to that. ROMAN JAMES MD DR: MAGDALENE/analy JOB#: [id number] / [id number]
[2020-03-26] MEDS: PATCH REMOVAL. MC SCH (20:59)
[2020-03-26] MEDS: GABAPENTIN 300 MG CAPSULE. PO SCH (21:00)
[2020-03-27 06:15] LABS: HEMATOCRIT 32.8 % (36.0-47.0); HEMOGLOBIN 10.5 g/dL (12.0-15.5); RED BLOOD COUNT 3.76 x10^6/uL (3.50-5.40); RED CELL DISTRIBUTION WIDTH 17.6 % (11.5-14.5); WHITE BLOOD COUNT 9.4 x10^3/uL (4.0-11.0)
[2020-03-27 06:30] LABS: ALBUMIN 2.6 g/dL (3.4-5.0); ALBUMIN/GLOBULIN RATIO 0.6 (1.0-1.7); CALCIUM 8.5 mg/dL (8.5-10.1); CREATININE 1.4 mg/dL (0.6-1.0); GFR 36.4; POTASSIUM 3.9 mmol/L (3.5-5.1); TOTAL BILIRUBIN 0.3 mg/dL (0.2-1.0); TOTAL PROTEIN 7.3 g/dL (6.4-8.2)
[2020-03-27] MEDS ORDERED: ALTEPLASE 2 MG VIAL INT CAT ONE (07:00)
[2020-03-27] MEDS: BUDESONIDE 0.5 MG/2 ML NEBU NEB SCH ×2 (08:00→20:19)
[2020-03-27 08:12] VITALS: BP 111/49
[2020-03-27] MEDS ORDERED: FUROSEMIDE 40 MG/4 ML VIAL IVP ONE (08:30)
[2020-03-27] MEDS: NICOTINE 7MG PATCH. TD SCH (08:34)
[2020-03-27] MEDS: MULTIVITAMIN with MINERAL TABLET. PO SCH (08:34)
[2020-03-27] MEDS: ENOXAPARIN 40 MG/0.4 ML SYRINGE. SQ SCH (08:34)
[2020-03-27] MEDS: clonazePAM 0.5 MG TABLET PO SCH (08:34)
[2020-03-27] MEDS: OMEGA-3 FATTY ACIDS/FISH OIL 1,000 MG CAPSULE. PO SCH (08:34)
[2020-03-27] MEDS: LACTOBACILLUS RHAMNOSUS GG 1 CAPSULE. PO SCH ×2 (08:34→20:10)
[2020-03-27] MEDS: ASPIRIN CHEWABLE 81 MG TABLET. PO SCH (08:35)
[2020-03-27] MEDS: CLOPIDOGREL BISULFATE 75 MG TABLET PO SCH (08:35)
[2020-03-27] MEDS: PANTOPRAZOLE 40 MG TABLET. PO SCH (08:35)
[2020-03-27] MEDS: AMOXICILLIN/K CLAV 875/125MG TABLET. PO SCH ×2 (08:35→20:10)
[2020-03-27] MEDS: LIDOCAINE (700MG/PATCH) PATCH. TP SCH (08:35)
[2020-03-27] MEDS: POTASSIUM CHLORIDE 20 MEQ TABLET.ER. PO SCH ×3 (08:35→20:10)
[2020-03-27] MEDS: VANCOMYCIN 125 MG/2.5 ML ORAL SOLUTION. PO SCH ×4 (08:35→20:11)
[2020-03-27 19:10] VITALS: BP 116/48
[2020-03-27] MEDS: PATCH REMOVAL. MC SCH (20:10)
[2020-03-27] MEDS: GABAPENTIN 300 MG CAPSULE. PO SCH (20:10)
[2020-03-28 07:46] VITALS: BP 123/55
[2020-03-28] MEDS: LIDOCAINE (700MG/PATCH) PATCH. TP SCH (07:48)
[2020-03-28] MEDS: NICOTINE 7MG PATCH. TD SCH (07:48)
[2020-03-28] MEDS: ENOXAPARIN 40 MG/0.4 ML SYRINGE. SQ SCH (07:48)
[2020-03-28] MEDS: AMOXICILLIN/K CLAV 875/125MG TABLET. PO SCH ×2 (07:49→20:18)
[2020-03-28] MEDS: POTASSIUM CHLORIDE 20 MEQ TABLET.ER. PO SCH ×3 (07:49→20:18)
[2020-03-28] MEDS: MULTIVITAMIN with MINERAL TABLET. PO SCH (07:49)
[2020-03-28] MEDS: clonazePAM 0.5 MG TABLET PO SCH (07:49)
[2020-03-28] MEDS: LACTOBACILLUS RHAMNOSUS GG 1 CAPSULE. PO SCH ×2 (07:49→20:18)
[2020-03-28] MEDS: OMEGA-3 FATTY ACIDS/FISH OIL 1,000 MG CAPSULE. PO SCH (07:49)
[2020-03-28] MEDS: VANCOMYCIN 125 MG/2.5 ML ORAL SOLUTION. PO SCH ×4 (07:49→20:18)
[2020-03-28] MEDS: ASPIRIN CHEWABLE 81 MG TABLET. PO SCH (07:50)
[2020-03-28] MEDS: PANTOPRAZOLE 40 MG TABLET. PO SCH (07:50)
[2020-03-28] MEDS: CLOPIDOGREL BISULFATE 75 MG TABLET PO SCH (07:50)
[2020-03-28] MEDS: BUDESONIDE 0.5 MG/2 ML NEBU NEB SCH ×2 (08:00→20:40)
[2020-03-28] MEDS: FUROSEMIDE 40 MG TABLET PO SCH (08:02)
[2020-03-28 20:14] VITALS: BP 108/28
[2020-03-28] MEDS: GABAPENTIN 300 MG CAPSULE. PO SCH (20:18)
[2020-03-28] MEDS: PATCH REMOVAL. MC SCH (20:18)
[2020-03-29 07:25] VITALS: BP 105/46
[2020-03-29] MEDS: ENOXAPARIN 40 MG/0.4 ML SYRINGE. SQ SCH (08:02)
[2020-03-29] MEDS: ASPIRIN CHEWABLE 81 MG TABLET. PO SCH (08:02)
[2020-03-29] MEDS: PANTOPRAZOLE 40 MG TABLET. PO SCH (08:02)
[2020-03-29] MEDS: OMEGA-3 FATTY ACIDS/FISH OIL 1,000 MG CAPSULE. PO SCH (08:02)
[2020-03-29] MEDS: LACTOBACILLUS RHAMNOSUS GG 1 CAPSULE. PO SCH ×2 (08:02→20:37)
[2020-03-29] MEDS: MULTIVITAMIN with MINERAL TABLET. PO SCH (08:02)
[2020-03-29] MEDS: AMOXICILLIN/K CLAV 875/125MG TABLET. PO SCH ×2 (08:02→20:37)
[2020-03-29] MEDS: clonazePAM 0.5 MG TABLET PO SCH (08:02)
[2020-03-29] MEDS: CLOPIDOGREL BISULFATE 75 MG TABLET PO SCH (08:02)
[2020-03-29] MEDS: POTASSIUM CHLORIDE 20 MEQ TABLET.ER. PO SCH ×3 (08:02→20:37)
[2020-03-29] MEDS: LIDOCAINE (700MG/PATCH) PATCH. TP SCH (08:03)
[2020-03-29] MEDS: NICOTINE 7MG PATCH. TD SCH (08:03)
[2020-03-29] MEDS: FUROSEMIDE 40 MG TABLET PO SCH (08:06)
[2020-03-29] MEDS: VANCOMYCIN 125 MG/2.5 ML ORAL SOLUTION. PO SCH ×4 (09:08→20:37)
[2020-03-29] MEDS: BUDESONIDE 0.5 MG/2 ML NEBU NEB SCH ×2 (11:06→20:26)
[2020-03-29 20:00] VITALS: BP 94/36
[2020-03-29] MEDS: PATCH REMOVAL. MC SCH (20:37)
[2020-03-29] MEDS: GABAPENTIN 300 MG CAPSULE. PO SCH (20:37)
[2020-03-30 08:51] VITALS: BP 112/46
[2020-03-30] MEDS: FUROSEMIDE 40 MG TABLET PO SCH (08:59)
[2020-03-30] MEDS: clonazePAM 0.5 MG TABLET PO SCH (08:59)
[2020-03-30] MEDS: ASPIRIN CHEWABLE 81 MG TABLET. PO SCH (08:59)
[2020-03-30] MEDS: NICOTINE 7MG PATCH. TD SCH (08:59)
[2020-03-30] MEDS: OMEGA-3 FATTY ACIDS/FISH OIL 1,000 MG CAPSULE. PO SCH (08:59)
[2020-03-30] MEDS: LIDOCAINE (700MG/PATCH) PATCH. TP SCH (08:59)
[2020-03-30] MEDS: ENOXAPARIN 40 MG/0.4 ML SYRINGE. SQ SCH (08:59)
[2020-03-30] MEDS: MULTIVITAMIN with MINERAL TABLET. PO SCH (08:59)
[2020-03-30] MEDS: PANTOPRAZOLE 40 MG TABLET. PO SCH (08:59)
[2020-03-30] MEDS: POTASSIUM CHLORIDE 20 MEQ TABLET.ER. PO SCH ×3 (09:00→20:08)
[2020-03-30] MEDS: AMOXICILLIN/K CLAV 875/125MG TABLET. PO SCH ×2 (09:00→20:08)
[2020-03-30] MEDS: CLOPIDOGREL BISULFATE 75 MG TABLET PO SCH (09:00)
[2020-03-30] MEDS: VANCOMYCIN 125 MG/2.5 ML ORAL SOLUTION. PO SCH ×4 (09:00→20:08)
[2020-03-30] MEDS: LACTOBACILLUS RHAMNOSUS GG 1 CAPSULE. PO SCH ×2 (09:00→20:08)
[2020-03-30] MEDS: BUDESONIDE 0.5 MG/2 ML NEBU NEB SCH ×2 (11:35→20:26)
[2020-03-30] MEDS: GABAPENTIN 300 MG CAPSULE. PO SCH (20:07)
[2020-03-30] MEDS: oxyCODONE/APAP 5/325 1 TAB TABLET PO PRN (20:08)
[2020-03-30] MEDS: PATCH REMOVAL. MC SCH (20:10)
[2020-03-30 20:15] VITALS: BP 112/30
[2020-03-31 08:10] VITALS: BP 81/61
[2020-03-31] MEDS: CLOPIDOGREL BISULFATE 75 MG TABLET PO SCH (08:12)
[2020-03-31] MEDS: MULTIVITAMIN with MINERAL TABLET. PO SCH (08:12)
[2020-03-31] MEDS: ENOXAPARIN 40 MG/0.4 ML SYRINGE. SQ SCH (08:12)
[2020-03-31] MEDS: AMOXICILLIN/K CLAV 875/125MG TABLET. PO SCH (08:12)
[2020-03-31] MEDS: POTASSIUM CHLORIDE 20 MEQ TABLET.ER. PO SCH ×3 (08:12→20:53)
[2020-03-31] MEDS: ASPIRIN CHEWABLE 81 MG TABLET. PO SCH (08:12)
[2020-03-31] MEDS: OMEGA-3 FATTY ACIDS/FISH OIL 1,000 MG CAPSULE. PO SCH (08:13)
[2020-03-31] MEDS: clonazePAM 0.5 MG TABLET PO SCH (08:13)
[2020-03-31] MEDS: LACTOBACILLUS RHAMNOSUS GG 1 CAPSULE. PO SCH ×2 (08:13→20:52)
[2020-03-31] MEDS: FUROSEMIDE 40 MG TABLET PO SCH (08:13)
[2020-03-31] MEDS: LIDOCAINE (700MG/PATCH) PATCH. TP SCH (08:13)
[2020-03-31] MEDS: PANTOPRAZOLE 40 MG TABLET. PO SCH (08:13)
[2020-03-31] MEDS: VANCOMYCIN 125 MG/2.5 ML ORAL SOLUTION. PO SCH ×4 (08:14→20:52)
[2020-03-31] MEDS: NICOTINE 7MG PATCH. TD SCH (09:00)
[2020-03-31 09:07] VITALS: BP 111/41
[2020-03-31] MEDS: BUDESONIDE 0.5 MG/2 ML NEBU NEB SCH ×2 (10:16→20:00)
[2020-03-31 17:36] VITALS: BP 114/60
[2020-03-31] MEDS: GABAPENTIN 300 MG CAPSULE. PO SCH (20:53)
[2020-03-31] MEDS: PATCH REMOVAL. MC SCH (21:00)
[2020-03-31 21:05] VITALS: BP 96/51
[2020-04-01 07:55] VITALS: BP 112/35
[2020-04-01] MEDS: BUDESONIDE 0.5 MG/2 ML NEBU NEB SCH ×3 (08:00→20:08)
[2020-04-01] MEDS: POTASSIUM CHLORIDE 20 MEQ TABLET.ER. PO SCH ×3 (08:59→20:00)
[2020-04-01] MEDS: LACTOBACILLUS RHAMNOSUS GG 1 CAPSULE. PO SCH ×2 (08:59→20:00)
[2020-04-01] MEDS: ASPIRIN CHEWABLE 81 MG TABLET. PO SCH (08:59)
[2020-04-01] MEDS: MULTIVITAMIN with MINERAL TABLET. PO SCH (08:59)
[2020-04-01] MEDS: CLOPIDOGREL BISULFATE 75 MG TABLET PO SCH (09:00)
[2020-04-01] MEDS: OMEGA-3 FATTY ACIDS/FISH OIL 1,000 MG CAPSULE. PO SCH (09:00)
[2020-04-01] MEDS: PANTOPRAZOLE 40 MG TABLET. PO SCH (09:00)
[2020-04-01] MEDS: clonazePAM 0.5 MG TABLET PO SCH (09:00)
[2020-04-01] MEDS: ENOXAPARIN 40 MG/0.4 ML SYRINGE. SQ SCH (09:01)
[2020-04-01] MEDS: VANCOMYCIN 125 MG/2.5 ML ORAL SOLUTION. PO SCH ×4 (09:01→20:01)
[2020-04-01] MEDS: FUROSEMIDE 40 MG TABLET PO SCH (09:01)
[2020-04-01] MEDS: LIDOCAINE (700MG/PATCH) PATCH. TP SCH (09:02)
[2020-04-01] MEDS: NICOTINE 7MG PATCH. TD SCH (09:04)
[2020-04-01] MEDS: oxyCODONE/APAP 5/325 1 TAB TABLET PO PRN (19:38)
[2020-04-01] MEDS: ZOLPIDEM 5 MG TABLET. PO PRN (20:00)
[2020-04-01] MEDS: GABAPENTIN 300 MG CAPSULE. PO SCH (20:00)
[2020-04-01 21:00] VITALS: BP 108/58
[2020-04-01] MEDS: PATCH REMOVAL. MC SCH (21:00)
[2020-04-02 07:54] VITALS: BP 107/39
[2020-04-02] MEDS: LIDOCAINE (700MG/PATCH) PATCH. TP SCH (07:58)
[2020-04-02] MEDS: OMEGA-3 FATTY ACIDS/FISH OIL 1,000 MG CAPSULE. PO SCH (07:59)
[2020-04-02] MEDS: ASPIRIN CHEWABLE 81 MG TABLET. PO SCH (07:59)
[2020-04-02] MEDS: clonazePAM 0.5 MG TABLET PO SCH (07:59)
[2020-04-02] MEDS: POTASSIUM CHLORIDE 20 MEQ TABLET.ER. PO SCH (07:59)
[2020-04-02] MEDS: PANTOPRAZOLE 40 MG TABLET. PO SCH (07:59)
[2020-04-02] MEDS: LACTOBACILLUS RHAMNOSUS GG 1 CAPSULE. PO SCH (07:59)
[2020-04-02] MEDS: CLOPIDOGREL BISULFATE 75 MG TABLET PO SCH (07:59)
[2020-04-02] MEDS: MULTIVITAMIN with MINERAL TABLET. PO SCH (07:59)
[2020-04-02] MEDS: VANCOMYCIN 125 MG/2.5 ML ORAL SOLUTION. PO SCH (08:00)
[2020-04-02] MEDS: NICOTINE 7MG PATCH. TD SCH (08:02)
[2020-04-02] MEDS: FUROSEMIDE 40 MG TABLET PO SCH (09:00)
[2020-04-02] MEDS: ENOXAPARIN 40 MG/0.4 ML SYRINGE. SQ SCH (09:00)
--- NOTE | 2020-04-02 11:06 | DS ---
DATE OF DISCHARGE: 04/02/2020 ATTENDING PHYSICIAN: Dr. Morocho. FINAL DISCHARGE DIAGNOSES: 1. Acute diverticulitis of sigmoid colon. 2. Sepsis syndrome, resolved. 3. Clostridium difficile pseudomembranous enterocolitis, treated. 4. Chronic obstructive pulmonary disease, oxygen dependent. 5. History of 4.5 x 4.4 cm infrarenal abdominal aortic aneurysm, being monitored, asymptomatic at this time. 6. Peripheral vascular disease. 7. Generalized debilitation. HISTORY OF PRESENT ILLNESS: This is a 79-year-old female with multiple medical issues. She had an episode of diverticulitis at [facility]. She was treated there and transferred here for further continuation and completion of her antibiotic course. She also developed an antibiotic-associated diarrhea with a positive C. difficile toxin. PHYSICAL EXAMINATION: Please see the dictated note. PERTINENT LABORATORY AND X-RAY STUDIES: Prior to discharge, she had stable hemoglobin of 10.5 g/dL with white count of 9400. Chemistry panel for followup showed a creatinine of 1.4 mg/dL, BUN of 9. Electrolytes within normal range. CO2 was 43 relative to COPD. The BNP was elevated at 4588. COURSE IN THE HOSPITAL: The patient was admitted. She was treated and finished her course of antibiotics. She also finished a 10-day course of oral vancomycin with improvement of her Clostridium difficile enterocolitis. On the 13th hospital day, her vital signs are stable. She was ready for discharge. At this time, she should continue her albuterol at home, aspirin 1 daily 81 mg, budesonide, capsaicin topical cream, Klonopin 0.5 mg at bedtime, Plavix 75 mg daily, Lasix 40 mg daily, Neurontin 300 mg at bedtime, Lidoderm patch, multivitamin, nicotine patch, omega-3 fish oil daily, oxycodone in the form of Percocet 5/325 one every 6 hours p.r.n. pain, Protonix 40 mg daily. For now, we have held her Lovenox and she is going home. Her oral vancomycin was stopped and her alprazolam p.r.n. was stopped. She remains a full code. She was discharged from our hospital in stable condition with explicit instructions and followup care with her primary care doctor. I also wrote her a script for folding walker. TOTAL DISCHARGE TIME SPENT: 39 minutes. JARET BARRETO MD DR: JEYSON/analy JOB#: [id number] / [id number] ROMAN Levin MD
== END 2020-04-02 11:51 | disposition home health service (06) | DRG 391 ==
LOC: 1 SOUTH 15:55 → LND 03-23 15:18
PROVIDERS: ADMIT Internal Medicine; ATTEND Internal Medicine
DX: R10.9 Unspecified abdominal pain (principal); A41.9 Sepsis, unspecified organism; A04.72 Enterocolitis due to Clostridium difficile, not specified as recurrent; J96.11 Chronic respiratory failure with hypoxia; K52.1 Toxic gastroenteritis and colitis; K57.32 Diverticulitis of large intestine without perforation or abscess without bleeding; E11.51 Type 2 diabetes mellitus with diabetic peripheral angiopathy without gangrene; E27.9 Disorder of adrenal gland, unspecified; E87.6 Hypokalemia; I25.10 Atherosclerotic heart disease of native coronary artery without angina pectoris; I50.9 Heart failure, unspecified; I71.4 Abdominal aortic aneurysm, without rupture; J44.9 Chronic obstructive pulmonary disease, unspecified; R53.81 Other malaise; K21.9 Gastro-esophageal reflux disease without esophagitis; T36.95XA Adverse effect of unspecified systemic antibiotic, initial encounter; F41.9 Anxiety disorder, unspecified; Z79.02 Long term (current) use of antithrombotics/antiplatelets; Z79.899 Other long term (current) drug therapy; Z82.49 Family history of ischemic heart disease and other diseases of the circulatory system; Z87.891 Personal history of nicotine dependence; Z98.41 Cataract extraction status, right eye; Z98.42 Cataract extraction status, left eye; Z99.81 Dependence on supplemental oxygen
CPT/HCPCS: 36415; 71045; 80048; 80053; 83735; 83880; 85025; 85027; 94640; 99406; J1650; J1940; 97110; 97116; 97530; 97535

== ENCOUNTER 2020-05-04 15:38 | Inpatient (IN) | payer MEDICARE ==
[~2020-05-04] VITALS: Ht 165.1 cm; Wt 86.2 kg
[~2020-05-04 15:38] MED LIST changes: +ALBU2.5V5 NEB; +ALPR0.254 PO; +ASPI-630 PO; +BUDE0.5A11 NEB; +CAPS42.514 TP; +CLOP75TA PO; +ENOX40DI SQ; +FURO40TA4 PO; +GABA-586 PO; +LACT1CAP19 PO; +LIDO700A21 TP; +MULT-114 PO; +NICO1PAT27 TD; +NICO2GUM5 BC; +OMEG1CAP50 PO; +OXYC1TAB15 PO; +PANT40TA3 PO; +VANC125C3 PO; +ZOLP5TAB5 PO
--- NOTE | 2020-05-04 16:17 | NUR ---
NSG NOTE; ADMISSION ADMIT TO ROOM 105 AT 1530 VIA W/C ACCOMP BY TRANSPORT PERSONNEL.
[2020-05-04 16:22] VITALS: BP 109/50
[2020-05-04] MEDS ORDERED: METO50TA29 PO (16:33)
[2020-05-04] MEDS ORDERED: APIX5TAB3 PO (16:33)
[2020-05-04] MEDS ORDERED: FORM20VI IH (16:33)
[2020-05-04] MEDS ORDERED: NICO1PAT21 TP (16:33)
[2020-05-04] MEDS ORDERED: POLY2500 PO (16:33)
[2020-05-04] MEDS ORDERED: DOCU100C28 PO (16:33)
[2020-05-04] MEDS ORDERED: FURO20TA3 PO (16:33)
[2020-05-04] MEDS ORDERED: BALS3OIN TP (16:38)
--- NOTE | 2020-05-04 17:01 | NUR ---
Swing Bed Admission Patient Handbook for [facility] given to patient. Nursing Problem: weakness and instability after recent long hospitalization with surgery/sepsis/afib rvr. needs education for new colostomy self care Cognitive/Behavioral: A&O x4, pleasant and cooperative, per report can be impulsive so bed alarm on at this time, [place] Pain: none Respiratory Status: hx COPD, on baseline O2 4L NC, SOA with exertion and laying flat so HOB elevated, smoker with nicotine patch on Skin: thin and fragile, coccyx reddened and blanchable, midline abd incision healing well, abd puncture site from BETTINA drain healing well with 4X4 in place Bowel/Bladder Continence: new colostomy with bag intact (last changed 05/01), RN at [facility] states ostomy self care education started but pt has not placed the bag herself yet-wound care consulted for ostomy education, sanchez removed 05/03/20 at [facility] with report that pt has been continent of urine and has been voiding ADL Functional Status: set up for meals but feeds self indep, needs one person assist with walker for amb in room, Fall(s) prior to admission? 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 pt had sigmoid colon resection on 04/17/2020 and currently has a colostomy on her LUQ.
[2020-05-04 19:31] VITALS: BP 114/46
[2020-05-04] MEDS ORDERED: NON FORMULARY ITEM (Formoterol Fumarate (Perforomist) 20 MCG) IH SCH (21:00)
[2020-05-04] MEDS: VITS A & D/LANOLIN TOPICAL OINTMENT 42GM TUBE. TP SCH (21:00)
[2020-05-04] MEDS: GABAPENTIN 300 MG CAPSULE. PO SCH (21:55)
[2020-05-04] MEDS: APIXABAN 5 MG TABLET. PO SCH (21:55)
[2020-05-04] MEDS: oxyCODONE/APAP 5/325 1 TAB TABLET PO PRN (22:11)
[2020-05-04] MEDS: ALBUTEROL SULFATE 2.5 MG/3 ML NEBU. NEB SCH (22:36)
[2020-05-04] MEDS: BUDESONIDE 0.5 MG/2 ML NEBU NEB SCH (22:36)
[2020-05-04 22:46] VITALS: BP 102/48
--- NOTE | 2020-05-04 22:48 | NUR ---
Swing Bed Nursing Note: Patient Handbook for Assisted given to patient. Nursing Problem: weakness and instability after recent long hospitalization with surgery/sepsis/afib rvr. needs education for new colostomy self care Cognitive/Behavioral: A&O x4, pleasant and cooperative, per report can be impulsive so bed alarm on at this time, [place] Pain: none Respiratory Status: hx COPD, on baseline O2 4L NC, SOA with exertion and laying flat so HOB elevated, smoker with nicotine patch on Skin: thin and fragile, coccyx reddened and blanchable, midline abd incision healing well, abd puncture site from BETTINA drain healing well with 4X4 in place Bowel/Bladder Continence: new colostomy with bag intact (last changed 05/01), RN at [facility] states ostomy self care education started but pt has not placed the bag herself yet-wound care consulted for ostomy education, sanchez removed 05/03/20 at [facility] with report that pt has been continent of urine and has been voiding ADL Functional Status: set up for meals but feeds self indep, needs one person assist with walker for amb in room, Fall(s) prior to admission? denies any falls in the last six months Admitted from [facility] [place] [place] where pt was admitted for enterocolonic fistula causing urosepsis. pt had sigmoid colon resection on 04/17/2020 and currently has a colostomy on her LUQ.
--- NOTE | 2020-05-04 23:36 | NUR ---
TX NOT GIVEN DUE TO BEING BUSY IN THE ER
[2020-05-05] MEDS: ALBUTEROL SULFATE 2.5 MG/3 ML NEBU. NEB SCH ×4 (05:11→19:37)
[2020-05-05] MEDS: BUDESONIDE 0.5 MG/2 ML NEBU NEB SCH ×3 (05:11→19:37)
[2020-05-05] MEDS: NICOTINE 21MG PATCH. TD SCH (08:30)
[2020-05-05] MEDS: OMEGA-3 FATTY ACIDS/FISH OIL 1,000 MG CAPSULE. PO SCH (08:31)
[2020-05-05] MEDS: DOCUSATE SODIUM 100 MG CAPSULE PO PRN (08:31)
[2020-05-05] MEDS: MULTIVITAMIN with MINERAL TABLET. PO SCH (08:31)
[2020-05-05] MEDS: clonazePAM 0.5 MG TABLET PO SCH (08:31)
[2020-05-05] MEDS: PANTOPRAZOLE 40 MG TABLET. PO SCH (08:31)
[2020-05-05] MEDS: POLYETHYLENE GLYCOL 3350 17 GM PACKET. PO SCH (08:31)
[2020-05-05] MEDS: FUROSEMIDE 20 MG TABLET PO SCH (08:32)
[2020-05-05] MEDS: APIXABAN 5 MG TABLET. PO SCH ×2 (08:32→21:22)
[2020-05-05] MEDS: VITS A & D/LANOLIN TOPICAL OINTMENT 42GM TUBE. TP SCH ×2 (08:38→21:22)
[2020-05-05 08:52] LABS: ALBUMIN 2.3 g/dL (3.4-5.0); ALBUMIN/GLOBULIN RATIO 0.5 (1.0-1.7); CALCIUM 8.1 mg/dL (8.5-10.1); CREATININE 0.9 mg/dL (0.6-1.0); GFR 60.6; POTASSIUM 3.9 mmol/L (3.5-5.1); TOTAL BILIRUBIN 0.7 mg/dL (0.2-1.0); TOTAL PROTEIN 6.5 g/dL (6.4-8.2)
[2020-05-05] MEDS: METOPROLOL SUCC 24HR ER 50 MG TAB.ER.24H. PO SCH (09:00)
[2020-05-05 09:32] LABS: BASO % 0 % (0-3); EOS # 0.1 x10^3/uL (0.0-0.7); EOS % 2 % (0-3); HEMATOCRIT 26.7 % (36.0-47.0); HEMOGLOBIN 8.6 g/dL (12.0-15.5); LYMPH # 0.6 x10^3/uL (1.0-4.8); LYMPH % 12 % (24-48); MEAN CORPUSCULAR HEMOGLOBIN 28 pg (25-35); MEAN CORPUSCULAR HGB CONC 32 g/dL (31-37); MEAN CORPUSCULAR VOLUME 87 fL (79-100); MONO # 0.4 x10^3/uL (0.0-1.1); MONO % 8 % (0-9); NEUT # 4.1 x10^3uL (1.8-7.7); NEUT % 78 % (31-73); PLATELET COUNT 154 x10^3/uL (140-400); RED BLOOD COUNT 3.07 x10^6/uL (3.50-5.40); RED CELL DISTRIBUTION WIDTH 17.7 % (11.5-14.5); WHITE BLOOD COUNT 5.2 x10^3/uL (4.0-11.0)
[2020-05-05 11:27] VITALS: BP 110/66
[2020-05-05 15:11] VITALS: BP 109/56
[2020-05-05] MEDS: oxyCODONE/APAP 5/325 1 TAB TABLET PO PRN ×2 (17:14→21:22)
--- NOTE | 2020-05-05 17:25 | HP ---
ADMIT DATE: HISTORY OF PRESENT ILLNESS: The patient is a 79-year-old female patient who was admitted to [facility] where she underwent sigmoid colon resection descending colostomy done on 04/17. She is status post blood transfusion with 1 unit of packed RBCs. She apparently has grown gram-negative rods with growth of E. coli and Klebsiella, treated with IV meropenem and micafungin and once she was hemodynamically stable, she was transferred to a swing bed at [facility] to continue with pain management, nutritional support and to start the process of physical and occupational therapy. PAST MEDICAL HISTORY: Significant for congestive heart failure, coronary artery disease, peripheral vascular disease, gastroesophageal reflux disease, diverticulosis, anxiety disorder, type 2 diabetes as well as COPD. She also had an episode of C. diff colitis. PAST SURGICAL HISTORY: Significant for ____ with stent deployment, bypass graft to the right lower extremity. She underwent a balloon angioplasty and had bilateral cataract extraction. She also underwent esophagogastroduodenoscopy and colonoscopy and most recently she underwent ureteral stent and sigmoid colon resection, descending colostomy. She is also known to have chronic hypoxic respiratory failure with a baseline of 3-4 liters supplemental oxygen. FAMILY HISTORY: She has 1 brother who is still alive at the age of 82 and apparently continued to be functional. Her sister , although she does not know the age when she and the cause of her . Her father because of myocardial infarction at the age of 85. Mother at age of 88 because of complication of peripheral vascular disease. SOCIAL HISTORY: She is , has moved to live with her daughter. She has 1 son and 1 daughter. She smoked 1 pack a day since she was 17 years old and finally has quit smoking. She does not drink alcohol or use any recreational drugs. She worked in a [employer]. ALLERGIES: She has no known drug allergies. MEDICATIONS: She was transferred to our facility to continue on following medications: She is on formoterol fumarate 20 mcg inhalation twice a day, nicotine patch 20 mg transdermally once a day, apixaban 5 mg twice a day, omega-3 fatty acid 1000 mg once a day, metoprolol succinate 50 mg daily, oxycodone/APAP 5/325 one tablet every 4 hours, clonazepam 0.5 mg daily, gabapentin 300 mg at bedtime, furosemide 20 mg daily, budesonide 0.5 mg 3 mL by nebulizer twice a day, Colace 100 mg twice a day, Protonix 40 mg daily, ____ emollient 3 grams topically twice a day, multivitamin with mineral 1 tablet once a day, polyethylene glycol 17 grams daily. REVIEW OF SYSTEMS: The patient denied any blurring of vision, cataract, glaucoma or macular degeneration. Denied any earache, tinnitus or sensorineural deafness. Denied any nosebleeds, stuffy nose or postnasal drip. Denied any sore throat, sore tongue, toothache, hoarseness of voice or difficulty swallowing. Did complain of abdominal bloating, but denied any diarrhea. Her colostomy was emptied, was normal formed stool with no blood, and denied any dysuria, frequency or hematuria. Denied any chest pain, shortness of breath, orthopnea or paroxysmal nocturnal dyspnea, although she did complain that she gets easily tired. PHYSICAL EXAMINATION: GENERAL: When I examined her this afternoon, she was resting slightly propped up in her recliner, in no apparent distress. She was pale, but no jaundice, cyanosis or thyromegaly. No jugular venous distention. Mild bilateral lower limb edema. VITAL SIGNS: Her heart rate was 69, blood pressure was 110/66, temperature 97.7, respiratory rate was 20, and oxygen saturation was 91% on 3 liters of oxygen. HEAD, EYES, EARS, NOSE AND THROAT: Normocephalic, atraumatic. NECK: Supple. HEART: Showed normal first and second heart sounds. No gallop, rub or murmur. CHEST: Clear to auscultation. No crepitation or rhonchi. ABDOMEN: Distended, soft, nontender. The midline surgical incision has healed nicely with no redness, tenderness or discharge. She has the colostomy bag in the left lower quadrant. There is no tenderness. No guarding or rigidity. No organomegaly. All hernial orifices intact. Bowel sounds normal. NEUROLOGIC: She was awake, alert, responding appropriately. All cranial nerves intact. EXTREMITIES: She moves extremities without difficulty. She ambulates with a walker. Her intake and output incompletely recorded. LABORATORY DATA: Her lab work this morning showed a white cell count 5200, hemoglobin 8.6, hematocrit 26.7, MCV 87 and platelet count of 154,000. Her chemistry showed a serum sodium 139, potassium 3.9, chloride 96, bicarbonate 42, anion gap of 1, BUN 23, creatinine 0.9, estimated GFR was 60 mL per minute. Her glucose was 87, calcium was 8.1. Total bilirubin, AST, ALT were normal. Alkaline phosphatase slightly elevated. Total protein was 6.5, albumin was 2.3. 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 She underwent colon surgery with sigmoid resection and enterocutaneous fistula and had had colostomy in the left lower quadrant with good output. She also apparently developed acute blood loss anemia for which she received 1 unit of packed RBCs on 04/19, acute on chronic hypoxic respiratory failure due to acute pulmonary edema. She has obviously normochromic normocytic anemia that is stable and is known to have chronic obstructive pulmonary disease. PLAN: Obviously to continue with all her current medications. Continue with physical and occupational therapy and nutritional support. ROMAN JAMES MD DR: MAGDALENE/analy JOB#: [id number] / [id number]
--- NOTE | 2020-05-05 17:27 | NUR ---
Swing Bed Nursing Note: Patient Handbook for Custodial given to patient. Nursing Problem: weakness and instability after recent long hospitalization with surgery/sepsis/afib rvr. needs education for new colostomy self care Cognitive/Behavioral: A&O x4, pleasant and cooperative, per report can be impulsive so bed alarm on at this time, [place] Pain: none Respiratory Status: hx COPD, on baseline O2 4L NC, SOA with exertion and laying flat so HOB elevated, smoker with nicotine patch on Skin: thin and fragile, coccyx reddened and blanchable, midline abd incision healing well, abd puncture site from BETTINA drain healing well with 4X4 in place Bowel/Bladder Continence: new colostomy with bag intact (last changed 05/01), RN at [facility] states ostomy self care education started but pt has not placed the bag herself yet-wound care consulted for ostomy education, sanchez removed 05/03/20 at [facility] with report that pt has been continent of urine and has been voiding ADL Functional Status: set up for meals but feeds self indep, needs one person assist with walker for amb in room, Fall(s) prior to admission? denies any falls in the last six months Admitted from [facility] where pt was admitted for enterocolonic fistula causing urosepsis. pt had sigmoid colon resection on 04/17/2020 and currently has a colostomy on her LUQ.
[2020-05-05 20:00] VITALS: BP 91/49
--- NOTE | 2020-05-05 20:36 | NUR ---
Patient O2 saturation low 83-84% on 4 liters. Patient states she runs 85% at home.Patient states she is not on her 40 mg of Lasix like at home. Encouraged Patient to do deep breathing and coughing. Call to Dr Morocho. Order for STAT CXR and STAT ABGS. Dr. Morocho states he will see her in AM and re evaluate medication.
--- NOTE | 2020-05-05 20:45 | NUR ---
Oxygen saturation now at 88 % on 4 liters. Patient resting quietly at this time.
[2020-05-05] MEDS: GABAPENTIN 300 MG CAPSULE. PO SCH (21:22)
--- NOTE | 2020-05-05 21:22 | RAD ---
Exam: Chest one view INDICATION: Low oxygen saturation TECHNIQUE: Frontal view of the chest Comparisons: 03/26/2020 FINDINGS: The cardiomediastinal silhouette and pulmonary vessels are within normal limits. Hazy opacity at lung bases bilaterally. Small bilateral pleural effusions greater on the left. IMPRESSION: Left pleural effusion with hazy bibasilar airspace disease. Electronically signed by: Vimal Crowell MD (05/05/2020 9:19 PM) [id number]
[2020-05-05 21:23] LABS: BGAS PH 7.44 (7.35-7.45)
[2020-05-05 23:52] VITALS: BP 97/57
--- NOTE | 2020-05-06 02:17 | NUR ---
Swing Bed Nursing Note: Patient Handbook for Alf given to patient. Nursing Problem: weakness and instability after recent long hospitalization with surgery/sepsis/afib rvr. needs education for new colostomy self care Cognitive/Behavioral: A&O x4, pleasant and cooperative, per report can be impulsive so bed alarm on at this time, [place] Pain: none Respiratory Status: hx COPD, on baseline O2 4L NC, O2 sat decreased this shift, Stat CXR and ABGS ordered post notifying Dr. Morocho. Respiratory therapist Cornelio spoke with Dr. Morocho regarding results of ABGS and POC. SOA with exertion and laying flat so HOB elevated, smoker with nicotine patch on Skin: thin and fragile, coccyx reddened and blanchable, midline abd incision healing well, abd puncture site from BETTINA drain healing well with 4X4 in place Bowel/Bladder Continence: new colostomy with bag intact (last changed 05/01), RN at [facility] states ostomy self care education started but pt has not placed the bag herself yet-wound care consulted for ostomy education, sanchez removed 05/03/20 at [facility] with report that pt has been continent of urine and has been voiding ADL Functional Status: set up for meals but feeds self indep, needs one person assist with walker for amb in room, Fall(s) prior to admission? denies any falls in the last six months Admitted from [facility] where pt was admitted for enterocolonic fistula causing urosepsis. pt had sigmoid colon resection on 04/17/2020 and currently has a colostomy on her LUQ.
[2020-05-06 04:57] VITALS: BP 108/65
[2020-05-06] MEDS: ALBUTEROL SULFATE 2.5 MG/3 ML NEBU. NEB SCH ×2 (05:18→09:27)
--- NOTE | 2020-05-06 06:33 | NUR ---
Patient has rested quietly this shift. Patient offered multiple time to go to restroom, Patient declined. Patient stated "I haven't drank much tonight. Encouraged Patient to drink water. Fresh water provided and Patient drinking water while watching TV. Call light in reach Patient instructed to call if urge to void.
[2020-05-06] MEDS: NICOTINE 21MG PATCH. TD SCH (07:21)
[2020-05-06] MEDS: APIXABAN 5 MG TABLET. PO SCH (07:22)
[2020-05-06] MEDS: oxyCODONE/APAP 5/325 1 TAB TABLET PO PRN (07:22)
[2020-05-06] MEDS: MULTIVITAMIN with MINERAL TABLET. PO SCH (07:22)
[2020-05-06] MEDS: DOCUSATE SODIUM 100 MG CAPSULE PO PRN (07:23)
[2020-05-06] MEDS: OMEGA-3 FATTY ACIDS/FISH OIL 1,000 MG CAPSULE. PO SCH (07:23)
[2020-05-06] MEDS: FUROSEMIDE 20 MG TABLET PO SCH (07:23)
[2020-05-06] MEDS: PANTOPRAZOLE 40 MG TABLET. PO SCH (07:23)
[2020-05-06] MEDS: clonazePAM 0.5 MG TABLET PO SCH (07:24)
[2020-05-06] MEDS: POLYETHYLENE GLYCOL 3350 17 GM PACKET. PO SCH (07:24)
[2020-05-06] MEDS: VITS A & D/LANOLIN TOPICAL OINTMENT 42GM TUBE. TP SCH (07:25)
[2020-05-06] MEDS: METOPROLOL SUCC 24HR ER 50 MG TAB.ER.24H. PO SCH (07:35)
[2020-05-06] MEDS: BUDESONIDE 0.5 MG/2 ML NEBU NEB SCH (09:27)
--- NOTE | 2020-05-06 10:26 | NUR ---
Swing Bed Nursing Note: Patient Handbook for Alf given to patient. Nursing Problem: weakness and instability after recent long hospitalization with surgery/sepsis/afib rvr. needs education for new colostomy self care Cognitive/Behavioral: A&O x4, pleasant and cooperative, per report can be impulsive so bed alarm on at this time, [place] Pain: none Respiratory Status: hx COPD, on baseline O2 4L NC, SOA with exertion and laying flat so HOB elevated, smoker with nicotine patch on Skin: thin and fragile, coccyx reddened and blanchable, midline abd incision healing well, abd puncture site from BETTINA drain healing well with 4X4 in place Bowel/Bladder Continence: new colostomy with bag intact (last changed 05/01), RN at [facility] states ostomy self care education started but pt has not placed the bag herself yet-wound care consulted for ostomy education, sanchez removed 05/03/20 at [facility] with report that pt has been continent of urine and has been voiding ADL Functional Status: set up for meals but feeds self indep, needs one person assist with walker for amb in room, Fall(s) prior to admission? denies any falls in the last six [address]mitted from [facility] where pt was admitted for enterocolonic fistula causing urosepsis. pt had sigmoid colon resection on 04/17/2020 and currently has a colostomy on her LUQ.
[2020-05-06 10:33] VITALS: BP 90/49
[2020-05-06] MEDS ORDERED: DIGO250T PO (12:24)
[2020-05-06] MEDS ORDERED: METO25TA2 PO (12:24)
--- NOTE | 2020-05-06 13:04 | NUR ---
PATIENT CHANGED TO INPATIENT STATUS
--- NOTE | 2020-05-06 14:33 | DS ---
DATE OF DISCHARGE: DISCHARGE AND TRANSFER SUMMARY TO ACUTE CARE HOSPITAL COURSE: The patient is a 79-year-old female patient, who was admitted to [facility], where she underwent sigmoid colon resection and descending colostomy done on 04/17/2020. She is status post blood transfusion of 1 unit of packed RBCs. She apparently has grown gram-negative rods with growth of E. coli and Klebsiella, treated with IV meropenem and micafungin. She underwent also a takedown of the colovesical fistula and postoperatively she went into atrial fibrillation with rapid ventricular response, for which she was on digoxin. She was also treated with Cardizem drip and eventually she was switched to metoprolol 50 mg twice a day. Unfortunately, the patient has severe pulmonary hypertension with pulmonary artery pressure of 92 mmHg. She is complaining of shortness of breath and she is normally on 40-80 mg of Lasix at home; however, her blood pressure is borderline ____ and she continued to have tachycardia and therefore a decision was made to transfer her to acute care, to consult the Cardiology team and also perhaps switch her to digoxin as her blood pressure is very low for treatment of Lasix. Despite being on 4 liters of oxygen by nasal cannula, her oxygen saturation is mostly less than 90, usually 85-89%. PHYSICAL EXAMINATION: GENERAL: When I saw her this afternoon, she was pale, but no jaundice, cyanosis or thyromegaly. No jugular venous distention. No lower limb edema. VITAL SIGNS: Her heart rate was 132, blood pressure was 90/49, temperature was 98, respiratory rate was 20, and oxygen saturation was 89% on 4 liters of oxygen. HEAD, EYES, EARS, NOSE AND THROAT: Showed normocephalic, atraumatic. NECK: Supple. HEART: Normal first and second heart sounds. No gallop or murmur. CHEST: Showed central trachea, equally reduced expansion, reduced air entry, vesicular breath sounds. I could not really appreciate any crepitation or rhonchi. ABDOMEN: Distended, soft, nontender. NEUROLOGIC: She is awake, alert, responding appropriately. All cranial nerves intact. EXTREMITIES: She moves upper extremities without difficulty. Examination of the extremities showed no clubbing, cyanosis, but bilateral lower limb edema. Her intake was 370, no output was recorded. LABORATORY DATA: Her lab work as of yesterday showed a white cell count 5200, hemoglobin 8.6, hematocrit 26.7, MCV 87 and platelet count of 154,000. Her chemistry showed a serum sodium 139, potassium 3.9, chloride 96, bicarbonate 42, anion gap of 1, BUN 23, creatinine 0.6, estimated GFR was 60 mL per minute. Her glucose was 87, calcium was 8.1. Total bilirubin, AST, ALT were normal. Alkaline phosphatase slightly elevated. Total protein 6.5, albumin 2.3. Her blood gases yesterday showed a pH of 7.44, pCO2 of 62, pO2 of 46, bicarbonate of 43 and oxygen saturation was 93% on FiO2 of 36%. DISCHARGE MEDICATIONS: The patient will be transferred to acute care to continue on polyethylene glycol 17 grams once a day, multivitamin 1 tablet once a day, Protonix 40 mg once a day, fish oil 1000 mg daily, nicotine patch 21 mg topically once a day, metoprolol succinate 50 mg once a day, furosemide 20 mg once a day, clonazepam 0.25 mg daily, vitamin A and D ointment twice a day, gabapentin 300 mg at bedtime, apixaban 5 mg twice a day, albuterol sulfate 2.5 mg 4 times a day, Pulmicort 0.5 mg twice a day, oxycodone/APAP 5/325 one tablet every 4 hours, Colace 100 mg twice a day. FINAL DISCHARGE DIAGNOSES: Atrial fibrillation with rapid ventricular response, congestive heart failure, probably diastolic. Severe pulmonary hypertension with pulmonary artery pressure of 92 mmHg, severe tricuspid regurgitation, chronic obstructive pulmonary disease, chronic hypoxic hypercapnic respiratory failure, coronary artery disease, type 2 diabetes mellitus, gastroesophageal reflux disease. PLAN: My plan is to start her on digoxin and continue to cut down her metoprolol to 25 mg once a day and consult the Cardiology team to assist with her management given that her blood pressure is very borderline and she is fluid overloaded and difficulty with diuretics. ROMAN JAMES MD DR: MAGDALENE/analy JOB#: [id number] / [id number]
== END 2020-05-06 13:12 | disposition short-term general hospital (02) | DRG 308 ==
LOC: 1 SOUTH 15:38
PROVIDERS: ADMIT Internal Medicine; ATTEND Internal Medicine
DX: I48.91 Unspecified atrial fibrillation (principal); E43 Unspecified severe protein-calorie malnutrition; I50.30 Unspecified diastolic (congestive) heart failure; J96.12 Chronic respiratory failure with hypercapnia; J96.11 Chronic respiratory failure with hypoxia; I11.0 Hypertensive heart disease with heart failure; I07.1 Rheumatic tricuspid insufficiency; F41.9 Anxiety disorder, unspecified; E11.51 Type 2 diabetes mellitus with diabetic peripheral angiopathy without gangrene; I25.10 Atherosclerotic heart disease of native coronary artery without angina pectoris; K21.9 Gastro-esophageal reflux disease without esophagitis; J44.9 Chronic obstructive pulmonary disease, unspecified; Z98.42 Cataract extraction status, left eye; Z98.41 Cataract extraction status, right eye; Z87.891 Personal history of nicotine dependence; Z82.49 Family history of ischemic heart disease and other diseases of the circulatory system; Z68.31 Body mass index [BMI] 31.0-31.9, adult
CPT/HCPCS: 36415; 71045; 80053; 82803; 85025; 94640; 94760; 97110; 97116; J7613

== ENCOUNTER 2020-05-06 13:12 | Inpatient (IN) | payer MEDICARE ==
[~2020-05-06] VITALS: Ht 165.1 cm; Wt 84.2 kg
[~2020-05-06 13:12] MED LIST changes: +APIX5TAB3 PO; +BALS3OIN TP; +DIGO250T PO; +DOCU100C28 PO; +FORM20VI IH; +FURO20TA3 PO; +METO25TA2 PO; +METO50TA29 PO; +NICO1PAT21 TP; +POLY2500 PO
--- NOTE | 2020-05-06 13:35 | NUR ---
PATIENT ADMITTED FORM SWING BED STATUS TO INPATIENT STATUS. CARDIOLOGY CONSULTED
[2020-05-06] MEDS ORDERED: DOCUSATE SODIUM 100 MG CAPSULE PO PRN (13:45)
[2020-05-06] MEDS: oxyCODONE/APAP 5/325 1 TAB TABLET PO PRN ×2 (14:07→21:30)
[2020-05-06 15:55] VITALS: BP 130/67
[2020-05-06 19:45] VITALS: BP 96/43
[2020-05-06] MEDS: METOPROLOL TART IMMED RELEASE 25 MG TABLET. PO SCH (20:04)
[2020-05-06] MEDS: BUDESONIDE 0.5 MG/2 ML NEBU NEB SCH (20:34)
[2020-05-06] MEDS ORDERED: BALSAM PERU TP SCH (21:00)
[2020-05-06] MEDS ORDERED: CASTOR OIL TP SCH (21:00)
[2020-05-06] MEDS ORDERED: NON FORMULARY ITEM (Formoterol Fumarate (Perforomist) 20 MCG) IH SCH (21:00)
[2020-05-06] MEDS: APIXABAN 5 MG TABLET. PO SCH (21:30)
[2020-05-06] MEDS: GABAPENTIN 300 MG CAPSULE. PO SCH (21:30)
[2020-05-06 23:00] VITALS: BP_SYST 113; BP_SYST 132; BP_DIAS 52; BP_DIAS 82
[2020-05-07] MEDS: oxyCODONE/APAP 5/325 1 TAB TABLET PO PRN ×3 (05:53→20:03)
[2020-05-07] MEDS: FUROSEMIDE 20 MG TABLET PO SCH (08:18)
[2020-05-07] MEDS: APIXABAN 5 MG TABLET. PO SCH ×2 (08:18→20:04)
[2020-05-07] MEDS: clonazePAM 0.5 MG TABLET PO SCH (08:19)
[2020-05-07] MEDS: METOPROLOL TART IMMED RELEASE 25 MG TABLET. PO SCH ×2 (08:20→20:04)
[2020-05-07] MEDS: MULTIVITAMIN with MINERAL TABLET. PO SCH (08:20)
[2020-05-07] MEDS: PANTOPRAZOLE 40 MG TABLET. PO SCH (08:20)
[2020-05-07] MEDS: OMEGA-3 FATTY ACIDS/FISH OIL 1,000 MG CAPSULE. PO SCH (08:20)
[2020-05-07] MEDS: POLYETHYLENE GLYCOL 3350 17 GM PACKET. PO SCH (08:20)
[2020-05-07] MEDS: NICOTINE 21MG PATCH. TD SCH (08:22)
[2020-05-07] MEDS ORDERED: DIGOXIN 125 MCG TABLET PO SCH (09:00)
[2020-05-07] MEDS ORDERED: METOPROLOL SUCC 24HR ER 25 MG TAB.ER.24H. PO SCH (09:00)
[2020-05-07] MEDS: BUDESONIDE 0.5 MG/2 ML NEBU NEB SCH ×2 (11:08→20:02)
[2020-05-07 11:18] VITALS: BP 105/50
--- NOTE | 2020-05-07 12:41 | PDOC2 ---
CONSULT DOS: DATE: 05/07/20 TIME: 12:41 Reason for Consult: Atrial fibrillation, CHF Referring Physician: Dr. Morocho Source: Chart review, Patient History of Present Illness 79 y/o female with history of CAD, PAD, chr diastolic HF, severe pulm HTN and COPD was initially admitted to [facility] for EC fistula with E.Coli/Kelb sepsis and underwent sigmoid colon resection and colostomy 04/17 and IV abx treatment. She was also transfused for anemia. She was transferred to [facility] longterm unit for PT/OT. She apparently underwent takedown of colovesical fistula and developed atrial fibrillation with RVR. Her heart rate was controlled with digoxin. She was transferred to [facility] inpatient for diastolic HF, marginal blood pressures and atrial fibrillation management. She presently denied any chest pain, orthopnea/PND, palpitations or syncope, Past Medical History CAD s/p PCI/stent placement PAD s/p surgical revasc RLE COPD Severe pulm HTN with PAP 92 mmHg Newly diagnosed Atrial fibrillation Chr diastolic HF Past Surgical History Sigmoid colon resection, colostomy Cataract extraction Surgical revasc RLE Family History CAD, PAD, HTN Social History Patient has 60+ pk yrs of smoking history and quit recently, denied any alcohol or drug use Current Medications Current Medications Apixaban (Eliquis) 5 mg BID PO Last administered on 05/07/20at 08:18; Start 05/06/20 at 21:00 Budesonide (Pulmicort) 1 mg BID NEB Last administered on 05/07/20at 11:08; Start 05/06/20 at 21:00 Clonazepam (KlonoPIN) 0.25 mg DAILY PO Last administered on 05/07/20at 08:19; Start 05/07/20 at 09:00 Docusate Sodium (Colace) 100 mg PRN BID PRN PO CONSTIPATION; Start 05/06/20 at 13:45 Furosemide (Lasix) 20 mg DAILY PO Last administered on 05/07/20at 08:18; Start 05/07/20 at 09:00 Gabapentin (Neurontin) 300 mg HS PO Last administered on 05/06/20at 21:30; Start 05/06/20 at 21:00 Metoprolol Succinate (Toprol Xl) 25 mg DAILY PO ; Start 05/07/20 at 09:00; Stop 05/06/20 at 15:46; Status DC Nicotine (Nicoderm Cq 21mg Patch) 1 patch DAILY TD Last administered on 05/07at 08:22; Start 05/07/20 at 09:00 Fish Oil (Fish Oil) 1,000 mg DAILY PO Last administered on 05/07/20at 08:20; Start 05/07/20 at 09:00 Oxycodone/ Acetaminophen (Percocet 5/325) 1 tab PRN Q4HRS PRN PO PAIN Last administered on 05/07/20at 05:53; Start 05/06/20 at 13:45 Pantoprazole Sodium (Protonix) 40 mg DAILYAC PO Last administered on 05/07/20at 08:20; Start 05/07/20 at 07:30 Non-Formulary Medication (Balsam [place]/ [place] Oil (Circuderm Emollient)) 3 gm BID TP ; Start 05/06/20 at 21:00; Stop 05/06/20 at 13:49; Status DC Digoxin (Lanoxin) 250 mcg DAILY PO ; Start 05/07/20 at 09:00; Stop 05/06/20 at 15:46; Status DC Non-Formulary Medication (Formoterol Fumarate (Perforomist)) 20 mcg BID IH ; Start 05/06/20 at 21:00; Stop 05/06/20 at 13:45; Status DC Multivitamins/ Calcium (Thera-M Plus) 1 tab DAILY PO Last administered on 05/07/20at 08:20; Start 05/07/20 at 09:00 Polyethylene Glycol (miraLAX) 17 gm DAILY PO Last administered on 05/07/20at 08:20; Start 05/07/20 at 09:00 Metoprolol Tartrate (Lopressor) 12.5 mg BID PO Last administered on 05/07/20at 08:20; Start 05/06/20 at 21:00 Active Scripts Active Digoxin 250 Mcg Tablet 250 Mcg PO DAILY 30 Days Toprol Xl (Metoprolol Succinate) 25 Mg Tab.er.24h 1 Tab PO DAILY 30 Days Reported Circuderm Emollient (Balsam [place] Oil) 3 Gm Oint.pack 3 Gm TP BID Polyethylene Glycol 3350 2,500 Gm Powder 17 Gm PO DAILY NICODERM CQ 21mg (Nicotine) 1 Each Patch.td24 1 Patch TP DAILY Furosemide 20 Mg Tablet 1 Tab PO DAILY Perforomist (Formoterol Fumarate) 20 Mcg/2 Ml Vial.neb 20 Mcg IH BID Docusate Sodium 100 Mg Capsule 1 Cap PO BID PRN Eliquis (Apixaban) 5 Mg Tablet 5 Mg PO BID Percocet 5-325 Mg Tablet (Oxycodone Hcl/Acetaminophen) 1 Each Tablet 1 Tab PO Q4HRS PRN Clonazepam 0.5 Mg Tablet 0.5 Tab PO DAILY Protonix (Pantoprazole Sodium) 40 Mg Tablet.dr 1 Tab PO DAILY Fish Oil 1,000 Mg Softgel ([place]-3 Fatty Acids/Fish Oil) 1 Each Capsule 1 Cap PO DAILY Multivitamins With Minerals (Multivitamin With Minerals) 1 Each Tablet 1 Tab PO DAILY Gabapentin (Gabapentin) 300 Mg Capsule 300 Mg PO HS Budesonide 0.5 Mg/2 Ml Ampul.neb 1 Vial NEB BID Allergies: Coded Allergies: No Known Drug Allergies (Unverified , 07/17/15) PSYCHOLOGICAL ROS: No: Hallucinations Eyes: No: Loss of vision HEENT: No: Epistaxis Respiratory: YES: Shortness of breath; No: Hemoptysis Cardiovascular: No: Chest Pain Gastrointestinal: YES: Abdominal Pain Neurological: No: Seizures Skin: No: Rash General: Alert, No acute distress HEENT: Atraumatic Lungs: Clear to auscultation Heart: Other (HR irregular) Abdomen: Other (mild diffuse tenderness) Extremities: Other (1-2+ edema) Neuro: Normal speech Psych/Mental Status: Mood NL VITALS Vital Signs Date Time Temp Pulse Resp B/P (MAP) Pulse Ox O2 Delivery O2 Flow Rate FiO2 05/07/20 11:18 98.0 62 20 105/50 (68) 93 Nasal Cannula 3.0 Assessment/Plan 1. Atrial fibrillation with RVR, rate better controlled. Due to marginal BP, we will use digoxin for rate control. Continue metoprolol at lower dose and eliquis for stroke prophylaxis. We will obtain records from [facility] regarding recent echo etc, 2. Acute on chronic diastolic HF with some component of cor pulmonale. We will diurese gently with Lasix and monitor BP closely. 3. CAD s/p PCI/stent placement in past, clinically stable and chest pain free. Continue current secondary prevention measures. 4. PAD s/p surgical revas in past, clinically stable 5. COPD: stable Thank you for your consultation MELISSA LEONARD MD May 07, 2020 12:41
[2020-05-07 15:00] VITALS: BP 117/62
[2020-05-07 19:00] VITALS: BP 103/53
[2020-05-07] MEDS: GABAPENTIN 300 MG CAPSULE. PO SCH (20:04)
[2020-05-07 23:01] VITALS: BP 119/62
[2020-05-08] MEDS: oxyCODONE/APAP 5/325 1 TAB TABLET PO PRN ×4 (03:12→21:29)
[2020-05-08 05:40] VITALS: BP 113/51
[2020-05-08] MEDS ORDERED: FUROSEMIDE 20 MG/2 ML VIAL IVP ONE (07:00)
--- NOTE | 2020-05-08 08:02 | PDOC ---
JANIE GOFF APRN 05/08/20 0802: CARDIO Progress Notes Date & Time Date of Service DATE: 05/08/20 TIME: 08:01 Time of Evaluation 08:01 Vitals Vitals Vital Signs Date Time Temp Pulse Resp B/P (MAP) Pulse Ox O2 Delivery O2 Flow Rate FiO2 05/08/20 05:40 98.0 68 22 113/51 (71) 91 Nasal Cannula 3.0 Weight Weight [ ] Input and Output I.O. Intake and Output 05/08/20 07:00 Intake Total 800 ml Balance 800 ml Intake Oral 800 ml # Voids 2 Assessment Assessment 1. PAFIB with RVR; converted back to SR and rate controlled 2. Acute on chronic diastolic HF with some component of cor pulmonale. 3. CAD s/p PCI/stent placement in past, clinically stable and chest pain free. 4. PAD s/p surgical revas in past, clinically stable 5. COPD: stable Recommendations Continue low-dose BB for rate control. Hold off on addition of digoxin as HR in now controlled and was mildly bradycardic yesterday and overnight Consider rhythm maintenance therapy./ Mild diuresis as BP allows. Eliquis for stroke prophylaxis. We will obtain records from [facility] regarding recent echo etc Continue current secondary prevention measures. MELISSA LEONARD MD 05/08/202117: CARDIO Progress Notes Assessment Assessment Patient seen and examined. Agree with NURSING UNIT MANAGER's assessment and plan. PAF presently back in SR Continue eliquis for stroke prophylaxis We will give additional IV lasix for decompensated diastolic HF CAD stable JANIE GOFF APRN May 08, 2020 08:02 MELISSA LEONARD MD May 08, 2020 21:18
[2020-05-08] MEDS: POLYETHYLENE GLYCOL 3350 17 GM PACKET. PO SCH (08:26)
[2020-05-08] MEDS: MULTIVITAMIN with MINERAL TABLET. PO SCH (08:27)
[2020-05-08] MEDS: PANTOPRAZOLE 40 MG TABLET. PO SCH (08:27)
[2020-05-08] MEDS: clonazePAM 0.5 MG TABLET PO SCH (08:27)
[2020-05-08] MEDS: NICOTINE 21MG PATCH. TD SCH (08:34)
[2020-05-08] MEDS: APIXABAN 5 MG TABLET. PO SCH ×2 (08:34→21:29)
[2020-05-08] MEDS: OMEGA-3 FATTY ACIDS/FISH OIL 1,000 MG CAPSULE. PO SCH (08:34)
[2020-05-08 08:36] VITALS: BP 101/54
[2020-05-08] MEDS ORDERED: DIGOXIN 125 MCG TABLET PO SCH (09:00)
[2020-05-08] MEDS: METOPROLOL TART IMMED RELEASE 25 MG TABLET. PO SCH ×2 (09:53→21:29)
--- NOTE | 2020-05-08 10:13 | HP ---
ADMIT DATE: 05/06/2020 SUBJECTIVE: The patient is resting, slightly propped up in bed, in no apparent respiratory distress. She denied any chest pain or shortness of breath. Did complain of swelling to both legs. She is maintaining her oxygen saturation at 93% on 3 liters of oxygen. PHYSICAL EXAMINATION: GENERAL: When I examined her, she was pale. No jaundice, cyanosis or thyromegaly. No jugular venous distention. Marked bilateral lower limb edema. VITAL SIGNS: Her heart rate was 62, blood pressure was 105/50, temperature was 98, respiratory rate was 20 and oxygen saturation was 93%. HEAD, EYES, EARS, NOSE AND THROAT: Normocephalic, atraumatic. NECK: Supple. HEART: Showed normal first and second sounds. No gallop, rub or murmur. CHEST: Clear to auscultation. No crepitation or rhonchi anteriorly. ABDOMEN: Distended, soft, nontender. NEUROLOGIC: She is somewhat hard of hearing, otherwise, all cranial nerves intact. She moves extremities without difficulty. Her intake over the last 24 hours was incompletely recorded. LABORATORY DATA: As of yesterday, her white cell count was 5200, hemoglobin 8.6, hematocrit 26.7, MCV 87 and platelet count of 154,000. Her chemistry showed a serum sodium 139, potassium 3.9, chloride 96, bicarbonate 42, anion gap of 1, BUN 23, creatinine 0.9, estimated GFR was 60 mL per minute. Her glucose was 87, uric acid 5.8. Her blood gases as of yesterday showed a pH of 7.44, pCO2 of 62, pO2 of 46, bicarbonate 43 and oxygen saturation was 83% on FiO2 of 36%. ASSESSMENT: 1. Atrial fibrillation with rapid ventricular response. 2. Congestive heart failure, probably diastolic. 3. Severe pulmonary hypertension with pulmonary artery pressure of 92 mmHg. 4. Severe tricuspid regurgitation. 5. Chronic obstructive pulmonary disease. 6. Chronic hypoxic hypercapnic respiratory failure. 7. Type 2 diabetes mellitus. 8. Gastroesophageal reflux disease. PLAN: Obviously to continue with current medication, including metoprolol tartrate was cut down to 12.5 mg twice a day. Continue with apixaban for anticoagulation. Continue furosemide. Continue with gastrointestinal prophylaxis. Continue with physical and occupational therapy. We did consult the Cardiology team to assist with the management of this patient. ROMAN JAMES MD DR: Cole JOB#: [id number] / [id number]
--- NOTE | 2020-05-08 11:00 | NUR ---
ostomy care spoke with patients daughter Avelina in regards to ostomy teaching. she stated they received teaching at the previous facility and felt that she didn't need any more at this time. notified her if she wanted us to enroll her mom in the [facility] Secure Start program we could do that but she stated she liked the [employer] bags. notified her that if the patient or daughter wanted more education to please let the nursing staff know and could do that. ostomy care team will sign off at this time, please re-consult if needed.
[2020-05-08] MEDS: BUDESONIDE 0.5 MG/2 ML NEBU NEB SCH ×2 (11:10→20:50)
[2020-05-08 11:21] VITALS: BP 113/65
[2020-05-08 13:12] VITALS: BP 113/69
[2020-05-08] MEDS: FUROSEMIDE 20 MG TABLET PO SCH (13:13)
--- NOTE | 2020-05-08 14:01 | PN ---
DATE: 05/08/2020 SUBJECTIVE: The patient is resting, slightly propped up, having her nap this afternoon. She apparently has worked with physical therapy multiple times. Her medications were adjusted by the wire roller. She is now on metoprolol 12.5 mg twice a day and she was given 20 mg of IV Lasix this morning and another 20 mg orally. Unfortunately, her legs are still markedly swollen. PHYSICAL EXAMINATION: GENERAL: When I saw her this afternoon, she was pale, but no jaundice, cyanosis or thyromegaly. No jugular venous distention. No limb edema. VITAL SIGNS: Her heart rate was 71, blood pressure was 113/69, temperature 98, respiratory rate 20, and oxygen saturation was 92% on 3 liters of oxygen. HEAD, EYES, EARS, NOSE AND THROAT: Normocephalic, atraumatic. NECK: Supple. HEART: Showed normal first and second heart sounds. No gallop or murmur. CHEST: Clear to auscultation. No crepitation or rhonchi. ABDOMEN: Distended, soft, nontender. NEUROLOGIC: She was grossly intact. Her intake over the last 24 hours was 960, no output was recorded. LABORATORY DATA: She has no lab work done this morning. ASSESSMENT: 1. Atrial fibrillation with rapid ventricular response, rate controlled, well anticoagulated. 2. Congestive heart failure, probably diastolic. 3. Severe pulmonary hypertension with pulmonary artery pressure of 92 mmHg. 4. Severe tricuspid regurgitation. 5. Chronic obstructive pulmonary disease. 6. Chronic hypoxic hypercapnic respiratory failure. 7. Type 2 diabetes mellitus. 8. Gastroesophageal reflux disease. PLAN: To continue obviously metoprolol at 12.5 mg twice a day. Continue with apixaban for anticoagulation. Continue with furosemide. Continue with GI prophylaxis. Continue with physical and occupational therapy. The Cardiology input is greatly appreciated. ROMAN JAMES MD DR: MAGDALENE/analy JOB#: [id number] / [id number]
[2020-05-08] MEDS ORDERED: FUROSEMIDE 40 MG/4 ML VIAL IVP ONE (16:15)
[2020-05-08 19:54] VITALS: BP 147/52
[2020-05-08] MEDS: GABAPENTIN 300 MG CAPSULE. PO SCH (21:29)
[2020-05-08 22:39] VITALS: BP 114/57
[2020-05-09] MEDS: oxyCODONE/APAP 5/325 1 TAB TABLET PO PRN ×3 (03:12→20:32)
[2020-05-09 05:48] VITALS: BP 121/54
[2020-05-09 06:18] LABS: HEMATOCRIT 24.1 % (36.0-47.0); HEMOGLOBIN 7.7 g/dL (12.0-15.5); RED BLOOD COUNT 2.79 x10^6/uL (3.50-5.40); WHITE BLOOD COUNT 4.9 x10^3/uL (4.0-11.0)
[2020-05-09 06:36] LABS: ALBUMIN 2.2 g/dL (3.4-5.0); ALBUMIN/GLOBULIN RATIO 0.6 (1.0-1.7); CALCIUM 7.7 mg/dL (8.5-10.1); CREATININE 1.2 mg/dL (0.6-1.0); GFR 43.4; POTASSIUM 3.6 mmol/L (3.5-5.1); TOTAL BILIRUBIN 0.5 mg/dL (0.2-1.0); TOTAL PROTEIN 6.2 g/dL (6.4-8.2)
[2020-05-09] MEDS: MULTIVITAMIN with MINERAL TABLET. PO SCH (07:58)
[2020-05-09] MEDS: clonazePAM 0.5 MG TABLET PO SCH (07:58)
[2020-05-09] MEDS: APIXABAN 5 MG TABLET. PO SCH ×2 (07:58→20:33)
[2020-05-09] MEDS: OMEGA-3 FATTY ACIDS/FISH OIL 1,000 MG CAPSULE. PO SCH (07:58)
[2020-05-09] MEDS: PANTOPRAZOLE 40 MG TABLET. PO SCH (07:59)
[2020-05-09] MEDS: METOPROLOL TART IMMED RELEASE 25 MG TABLET. PO SCH ×2 (07:59→20:33)
[2020-05-09] MEDS: POLYETHYLENE GLYCOL 3350 17 GM PACKET. PO SCH (08:00)
[2020-05-09] MEDS: FUROSEMIDE 20 MG TABLET PO SCH (08:00)
[2020-05-09] MEDS: NICOTINE 21MG PATCH. TD SCH (08:00)
--- NOTE | 2020-05-09 08:15 | PDOC ---
CARDIO Progress Notes Date & Time Date of Service DATE: 05/09/20 TIME: 08:14 Time of Evaluation 08:14 Subjective Notes LE edema slightly better. No chest pain, palpitations Vitals Vitals Vital Signs Date Time Temp Pulse Resp B/P (MAP) Pulse Ox O2 Delivery O2 Flow Rate FiO2 05/09/20 08:07 18 Nasal Cannula 3.5 05/09/20 07:59 64 121/54 05/09/20 05:48 98.0 91 Weight Weight [ ] Input and Output I.O. Intake and Output 05/09/20 07:00 Intake Total 1430 ml Balance 1430 ml Intake Oral 1430 ml # Voids 4 Laboratory Labs Laboratory Tests Test 05/09/20 05:34 White Blood Count 4.9 x10^3/uL (4.0-11.0) Red Blood Count 2.79 x10^6/uL (3.50-5.40) Hemoglobin 7.7 g/dL (12.0-15.5) Hematocrit 24.1 % (36.0-47.0) Mean Corpuscular Volume 86 fL (79-100) Mean Corpuscular Hemoglobin 28 pg (25-35) Mean Corpuscular Hemoglobin Concent 32 g/dL (31-37) Red Cell Distribution Width 17.0 % (11.5-14.5) Platelet Count 161 x10^3/uL (140-400) Sodium Level 136 mmol/L (136-145) Potassium Level 3.6 mmol/L (3.5-5.1) Chloride Level 96 mmol/L (98-107) Carbon Dioxide Level 41 mmol/L (21-32) Anion Gap -1 (6-14) Blood Urea Nitrogen 14 mg/dL (7-20) Creatinine 1.2 mg/dL (0.6-1.0) Estimated GFR (Cockcroft-Gault) 43.4 BUN/Creatinine Ratio 12 (6-20) Glucose Level 85 mg/dL (70-99) Calcium Level 7.7 mg/dL (8.5-10.1) Total Bilirubin 0.5 mg/dL (0.2-1.0) Aspartate Amino Transf (AST/SGOT) 24 U/L (15-37) Alanine Aminotransferase (ALT/SGPT) 19 U/L (14-59) Alkaline Phosphatase 137 U/L (46-116) RF-Rwf-P-Type Natriuretic Peptide 7816 pg/mL (0-449) Total Protein 6.2 g/dL (6.4-8.2) Albumin 2.2 g/dL (3.4-5.0) Albumin/Globulin Ratio 0.6 (1.0-1.7) Physical Exams HEENT: Neck Supple W Full Motion Chest: Symmetric Lungs: Clear to Auscultation, Other (diminished bases ) Heart: RRR (SR/SB) Abdomen: Soft N/T Extremities: Other (1-2+ biilateral LE edema ) Neurology: alert, oriented, follow commands Assessment Assessment 1. PAFIB with RVR; converted back to SR and rate controlled 2. Acute on chronic diastolic HF with component of cor pulmonale. Better compensated with diuresis 3. CAD s/p PCI/stent placement in past, clinically stable and chest pain free. 4. PAD s/p surgical revas in past, clinically stable 5. COPD: stable Recommendations Continue low-dose BB for rate control. Outpatient event monitor to guide therapy; Consider rhythm maintenance therapy if further AFIB noted Ongoing diuresis Eliquis for stroke prophylaxis. Awaiting echo from [facility] Continue current secondary prevention measures. Supportive care JANIE GOFF APRN May 09, 2020 08:15
[2020-05-09 10:45] VITALS: BP 119/65
[2020-05-09] MEDS ORDERED: POTASSIUM CHLORIDE 20 MEQ TABLET.ER. PO ONE (11:00)
[2020-05-09] MEDS ORDERED: FUROSEMIDE 40 MG/4 ML VIAL IVP ONE (11:00)
[2020-05-09] MEDS: BUDESONIDE 0.5 MG/2 ML NEBU NEB SCH ×2 (11:09→21:08)
--- NOTE | 2020-05-09 11:48 | PN ---
DATE: 05/09/2020 ATTENDING PHYSICIAN: Dr. Morocho. CHIEF COMPLAINT: Shortness of breath. SUBJECTIVE: The patient is comfortable. She is less dyspneic. She is eating well. She is diuresing. She says her leg swelling has improved. OBJECTIVE FINDINGS: VITAL SIGNS: Blood pressure today is 121/54, pulse was down to 58 per minute, irregularly irregular, oxygen saturation 91% on 3 liters of nasal cannula, temperature 98.0 degrees Fahrenheit. HEENT: Head is without trauma. Pupils are reactive. Sclerae nonicteric. Oropharynx clear. She is edentulous. NECK: Supple. Venous pressure distended at 45 degrees. LUNGS: Bibasilar crackles with wheezing in the upper airways. CARDIOVASCULAR: Show irregularly irregular rhythm, controlled rate. No obvious gallops. Peripheral pulses are palpable and weak. ABDOMEN: Soft, obese, protuberant. No organomegaly. Bowel sounds were limited, hypoactive. NEUROLOGIC: Focally intact. Speech is fluent. EXTREMITIES: She still has 2+ pitting edema extending all the way up to her thighs ASSESSMENT: 1. Atrial fibrillation, rapid ventricular rate. Rate is now controlled and well anticoagulated in addition. 2. Acute on chronic congestive heart failure, diastolic in nature. 3. Severe pulmonary hypertension. The PAP pressure was measured at 92 mmHg. She is approaching Eisenmenger physiology. 4. Severe tricuspid regurgitation. 5. Advanced chronic obstructive pulmonary disease. 6. Acute on chronic hypoxemic hypercapnic respiratory failure. 7. Type 2 diabetes. 8. Gastroesophageal reflux disease. 9. Anemia of chronic disease. Last hemoglobin was 7.7 mg/dL. PLAN: 1. Continue metoprolol as ordered. 2. Rest per Cardiology. 3. Continue anticoagulation with close monitoring of her CBCs. I do not think she is actively bleeding. 4. Continue diuresis. 5. She will need daily weights and fluid restriction. JARET BARRETO MD DR: JEYSON/analy JOB#: [id number] / [id number]
--- NOTE | 2020-05-09 13:42 | NUR ---
NURSING NOTE VTACH PT HAD 5 BEATS OF VTACH, CARDIOLOGY NOTIFIED, SPOKE WITH JANIE. ORDERS OBTAINED FOR TSH AND MAG LEVEL. WILL CONTINUE TO MONITOR. OSWALD MEADE.
[2020-05-09 15:08] VITALS: BP 111/49
--- NOTE | 2020-05-09 18:20 | NUR ---
NURSING NOTE PT IN BED UPON MEDICATION ADMINISTRATION AND ASSESSMENT THIS AM. PT REQUESTED PRN PAIN MEDICATION. OXYCODONE GIVEN. PT UP IN CHAIRS FOR MEALS. PT ALERT AND ORIENTED. WILL CONTINUE TO MONITOR. OSWALD ADAN
[2020-05-09 18:35] VITALS: BP 147/62
[2020-05-09] MEDS: GABAPENTIN 300 MG CAPSULE. PO SCH (20:32)
[2020-05-09 23:23] VITALS: BP 105/46
[2020-05-10 05:31] VITALS: BP 122/58
[2020-05-10] MEDS: clonazePAM 0.5 MG TABLET PO SCH (07:33)
[2020-05-10] MEDS: oxyCODONE/APAP 5/325 1 TAB TABLET PO PRN ×3 (07:34→20:22)
[2020-05-10] MEDS: OMEGA-3 FATTY ACIDS/FISH OIL 1,000 MG CAPSULE. PO SCH (07:34)
[2020-05-10] MEDS: MULTIVITAMIN with MINERAL TABLET. PO SCH (07:34)
[2020-05-10] MEDS: FUROSEMIDE 20 MG TABLET PO SCH ×2 (07:34→09:00)
[2020-05-10] MEDS: APIXABAN 5 MG TABLET. PO SCH ×2 (07:34→20:23)
[2020-05-10] MEDS: PANTOPRAZOLE 40 MG TABLET. PO SCH (07:34)
[2020-05-10] MEDS: METOPROLOL TART IMMED RELEASE 25 MG TABLET. PO SCH ×2 (07:35→20:23)
[2020-05-10] MEDS: NICOTINE 21MG PATCH. TD SCH (07:35)
[2020-05-10] MEDS: POLYETHYLENE GLYCOL 3350 17 GM PACKET. PO SCH (07:39)
--- NOTE | 2020-05-10 08:08 | PDOC ---
CARDIO Progress Notes Date & Time Date of Service DATE: 05/10/20 TIME: 08:07 Time of Evaluation 08:07 Subjective Notes Less SOA. LE edema better. No chest pain Vitals Vitals Vital Signs Date Time Temp Pulse Resp B/P (MAP) Pulse Ox O2 Delivery O2 Flow Rate FiO2 05/10/20 08:00 Nasal Cannula 4.0 05/10/20 07:35 63 122/58 05/10/20 07:34 18 05/10/20 05:31 97.7 97 Weight Weight [ ] Input and Output I.O. Intake and Output 05/10/20 07:00 Intake Total 820 ml Output Total 300 ml Balance 520 ml Intake Oral 820 ml Output Urine/Stool Mix 300 ml # Voids 4 Laboratory Labs Laboratory Tests Test 05/09/20 05:34 White Blood Count 4.9 x10^3/uL (4.0-11.0) Red Blood Count 2.79 x10^6/uL (3.50-5.40) Hemoglobin 7.7 g/dL (12.0-15.5) Hematocrit 24.1 % (36.0-47.0) Mean Corpuscular Volume 86 fL (79-100) Mean Corpuscular Hemoglobin 28 pg (25-35) Mean Corpuscular Hemoglobin Concent 32 g/dL (31-37) Red Cell Distribution Width 17.0 % (11.5-14.5) Platelet Count 161 x10^3/uL (140-400) Sodium Level 136 mmol/L (136-145) Potassium Level 3.6 mmol/L (3.5-5.1) Chloride Level 96 mmol/L (98-107) Carbon Dioxide Level 41 mmol/L (21-32) Anion Gap -1 (6-14) Blood Urea Nitrogen 14 mg/dL (7-20) Creatinine 1.2 mg/dL (0.6-1.0) Estimated GFR (Cockcroft-Gault) 43.4 BUN/Creatinine Ratio 12 (6-20) Glucose Level 85 mg/dL (70-99) Calcium Level 7.7 mg/dL (8.5-10.1) Magnesium Level 1.4 mg/dL (1.8-2.4) Total Bilirubin 0.5 mg/dL (0.2-1.0) Aspartate Amino Transf (AST/SGOT) 24 U/L (15-37) Alanine Aminotransferase (ALT/SGPT) 19 U/L (14-59) Alkaline Phosphatase 137 U/L (46-116) DQ-Zio-P-Type Natriuretic Peptide 7816 pg/mL (0-449) Total Protein 6.2 g/dL (6.4-8.2) Albumin 2.2 g/dL (3.4-5.0) Albumin/Globulin Ratio 0.6 (1.0-1.7) Physical Exams HEENT: Neck Supple W Full Motion Chest: Symmetric Lungs: Clear to Auscultation, Other (diminished bases ) Heart: RRR (SR/SB), murmurs (2/6 systolic function ) Abdomen: Soft N/T Extremities: Other (1-2+ biilateral LE edema ) Neurology: alert, oriented, follow commands Assessment Assessment 1. PAFIB with RVR; converted back to SR and rate controlled 2. Acute on chronic diastolic HF with component of cor pulmonale. Better compensated with IV diuresis. Echo 04/12/20 with preserved LV systolic function 3. CAD s/p PCI/stent placement in past, clinically stable and chest pain free. 4. PAD s/p surgical revas in past, clinically stable 5. COPD: stable 6. Hypomagnesium Recommendations Replace Mg Continue low-dose BB for rate control. Outpatient event monitor arranged to guide therapy; Consider rhythm maintenance therapy if further AFIB noted Will give additional dose of IV Lasix today then resume oral Lasix 40mg PO daily Eliquis for stroke prophylaxis. Continue current secondary prevention measures. Follow up with Dr. Sahni June 13 at 2:45pm in [place] office. Supportive care JANIE GOFF APRN May 10, 2020 08:08
[2020-05-10] MEDS ORDERED: MAGNESIUM SULFATE 2GM 50 ML IV ONE (08:30)
[2020-05-10] MEDS ORDERED: FUROSEMIDE 20 MG/2 ML VIAL IVP ONE (08:45)
[2020-05-10] MEDS ORDERED: POTASSIUM CHLORIDE 20 MEQ TABLET.ER. PO ONE (08:45)
[2020-05-10] MEDS ORDERED: MAGNESIUM SULFATE 1GM 100 ML IV ONE (09:45)
--- NOTE | 2020-05-10 10:29 | NUR ---
NURSING NOTE: WRIST PT HAS LUMP ON THE RIGHT WRIST, DR. BARRETO NOTIFIED. WILL CONTINUE TO MONITOR. OSWALD ADAN
[2020-05-10] MEDS: BUDESONIDE 0.5 MG/2 ML NEBU NEB SCH ×2 (11:01→19:59)
[2020-05-10 11:11] VITALS: BP 119/58
--- NOTE | 2020-05-10 11:14 | PN ---
DATE: 05/10/2020 ATTENDING PHYSICIAN: Dr. Barreto. SUBJECTIVE: Breathing better, diuresing well. Still remains very weak. OBJECTIVE FINDINGS: VITAL SIGNS: Blood pressure today is 122/58, pulse 63 and regular. She is afebrile. Oxygen saturation 97% on 4 liters of supplemental oxygen by nasal cannula. HEENT: Head is without trauma. Pupils are reactive. Sclerae nonicteric. Oropharynx clear. NECK: Supple, no bruits identified. LUNGS: Diffuse wheezing still persists in the upper airways not as prominent. CARDIOVASCULAR: Showed regular heart tones. No gallops. ABDOMEN: Soft. There is a functioning ostomy in the left lower quadrant. Stoma is clean. EXTREMITIES: Showed 2+ edema up to her knees. NEUROLOGIC: Focally intact. SKIN: Warm and dry. She has a very small hematoma on the posterior surface of the right upper arm. ASSESSMENT: 1. A 79-year-old female with atrial fibrillation, rapid ventricular rate, controlled. 2. Acute on chronic congestive heart failure, diastolic in nature. 3. Severe pulmonary hypertension 92 mmHg PAP, she is approaching Eisenmenger physiology. 4. Severe tricuspid regurgitation. 5. Oxygen-dependent chronic obstructive pulmonary disease. 6. Chronic hypoxemic hypercapnic respiratory failure. 7. Type 2 diabetes. 8. Anemia of chronic disease. 9. Gastroesophageal reflux disease. PLAN: 1. Continue metoprolol as ordered. 2. Diuresis. 3. Chronic anticoagulation. 4. Followup chemistry and CBC in the morning. Tentative plan is to discharge in the next few days. She will consider going to swing bed. JARET BARRETO MD DR: JEYSON/analy JOB#: [id number] / [id number]
[2020-05-10 15:15] VITALS: BP 138/71
--- NOTE | 2020-05-10 18:20 | NUR ---
NURSING NOTE PT IN BED UPON MEDICATION ADMINISTRATION AND ASSESSMENT THIS AM. PT REQUESTED PRN PAIN MEDICATION. OXYCODONE GIVEN. PT UP IN CHAIRS FOR MEALS. PT ALERT AND ORIENTED X4. PT EXPERIENCED SOME ANXIETY THIS AFTERNOON BUT IT RESOLVED AFTER REST. WILL CONTINUE TO MONITOR. OSWALD ADAN
[2020-05-10 19:52] VITALS: BP 127/58
[2020-05-10] MEDS: GABAPENTIN 300 MG CAPSULE. PO SCH (20:22)
[2020-05-10 23:36] VITALS: BP 123/55
[2020-05-11 05:59] VITALS: BP 142/92
[2020-05-11 06:18] LABS: BASO % 0 % (0-3); CALCIUM 8.3 mg/dL (8.5-10.1); CREATININE 1.2 mg/dL (0.6-1.0); EOS # 0.2 x10^3/uL (0.0-0.7); EOS % 3 % (0-3); GFR 43.4; HEMATOCRIT 28.6 % (36.0-47.0); HEMOGLOBIN 8.9 g/dL (12.0-15.5); LYMPH # 0.9 x10^3/uL (1.0-4.8); LYMPH % 19 % (24-48); MEAN CORPUSCULAR HEMOGLOBIN 27 pg (25-35); MEAN CORPUSCULAR HGB CONC 31 g/dL (31-37); MEAN CORPUSCULAR VOLUME 87 fL (79-100); MONO # 0.3 x10^3/uL (0.0-1.1); MONO % 7 % (0-9); NEUT # 3.2 x10^3uL (1.8-7.7); NEUT % 70 % (31-73); PLATELET COUNT 209 x10^3/uL (140-400); POTASSIUM 3.8 mmol/L (3.5-5.1); RED CELL DISTRIBUTION WIDTH 17.3 % (11.5-14.5); WHITE BLOOD COUNT 4.6 x10^3/uL (4.0-11.0)
[2020-05-11] MEDS: POLYETHYLENE GLYCOL 3350 17 GM PACKET. PO SCH (08:12)
[2020-05-11] MEDS: MULTIVITAMIN with MINERAL TABLET. PO SCH (08:15)
[2020-05-11] MEDS: clonazePAM 0.5 MG TABLET PO SCH (08:15)
[2020-05-11 08:16] VITALS: BP 142/92
[2020-05-11] MEDS: APIXABAN 5 MG TABLET. PO SCH (08:16)
[2020-05-11] MEDS: PANTOPRAZOLE 40 MG TABLET. PO SCH (08:16)
[2020-05-11] MEDS: METOPROLOL TART IMMED RELEASE 25 MG TABLET. PO SCH (08:16)
[2020-05-11] MEDS: FUROSEMIDE 20 MG TABLET PO SCH (08:16)
[2020-05-11] MEDS: NICOTINE 21MG PATCH. TD SCH (08:17)
[2020-05-11] MEDS: OMEGA-3 FATTY ACIDS/FISH OIL 1,000 MG CAPSULE. PO SCH (08:17)
--- NOTE | 2020-05-11 10:29 | NUR ---
NSG NOTE; DISCHARGE TO SNU UNIT ORDER NOTED. MED REC COMPLETED BY DR BARRETO DISCHARGED FOR ADMISSION TO INTERMEDIATE UNIT FOR CONTINUED PT/OT AND MONITORING OF CHF. PT WILL REMAIN IN HER CURRENT ROOM FOR NOW ALONG WITH ALL HER PERSONAL BELONGINGS
--- NOTE | 2020-05-11 11:14 | DS ---
DATE OF DISCHARGE: 05/11/2020 ATTENDING PHYSICIAN: Dr. Morocho. FINAL DISCHARGE DIAGNOSES: 1. Ruomc-hj-yrfsgah congestive heart failure, diastolic. 2. Atrial fibrillation with rapid ventricular rate, treated. 3. Gdxeo-ax-xnpbmrk respiratory failure. 4. Severe pulmonary hypertension, pulmonary artery pressures of 92 mmHg, approaching Eisenmenger physiology. 5. Severe tricuspid regurgitation. 6. Chronic hypoxemic hypercapnic respiratory failure. 7. Type 2 diabetes. 8. Gastroesophageal reflux disease. HISTORY AND PHYSICAL: The patient is a 79-year-old female with multiple cardiac and pulmonary issues, admitted with significant dyspnea and rapid atrial fibrillation with increased ventricular rate. PHYSICAL EXAMINATION: Please see the dictated note. PERTINENT LABORATORY AND X-RAY STUDIES: Numerous. Prior to discharge, her electrolytes were within normal range. Creatinine is 1.2 mg/dL, potassium 3.8 mEq. Hemoglobin improved to 8.9 g/dL with white count of 4600. IMAGING STUDIES: Chest x-ray showed hazy bibasilar airspace disease and left pleural effusion, consistent with heart failure. COURSE IN THE HOSPITAL: The patient was admitted. She was started on diuretics, nebulizer therapy and beta-blockade to slow her heart rate down. Cardiology services were consulted. Their recommendation is on the chart. She did fairly well. She responded to diuresis. Heart rate was controlled in the 60s and 70s and she had no further symptoms. On the fifth hospital day, she was agreeable to go to our rehab unit for strengthening, continued rehabilitation. Her vital signs were quite stable. Her blood pressure was 142/92. She was afebrile, heart rate 72 and regular, and oxygen saturation 91% on 3 liters by nasal cannula, which is her baseline oxygen therapy. She is discharged then with continuation of home meds including the following. She has been on Eliquis 5 mg b.i.d. for stroke prevention, budesonide, Klonopin 0.5 mg p.r.n. anxiety, Digitalis 0.25 mg daily, docusate, Perforomist, Lasix daily, Neurontin, metoprolol, Nicoderm patch, oxycodone p.r.n., Protonix and MiraLax 17 g daily. She remains DNR per advanced directives. She will continue her home meds on the Rehab Unit. She was discharged then from our hospital in stable condition with explicit instructions involved care. JARET BARRETO MD DR: JEYSON/analy JOB#: [id number] / [id number] ROMAN Levin MD
== END 2020-05-11 10:32 | DRG 291 ==
LOC: 1 SOUTH 13:12
PROVIDERS: ADMIT Internal Medicine; ATTEND Internal Medicine
DX: I50.33 Acute on chronic diastolic (congestive) heart failure (principal); J96.21 Acute and chronic respiratory failure with hypoxia; J96.22 Acute and chronic respiratory failure with hypercapnia; I48.0 Paroxysmal atrial fibrillation; D63.8 Anemia in other chronic diseases classified elsewhere; E11.9 Type 2 diabetes mellitus without complications; E83.42 Hypomagnesemia; F41.9 Anxiety disorder, unspecified; I07.1 Rheumatic tricuspid insufficiency; I25.10 Atherosclerotic heart disease of native coronary artery without angina pectoris; I27.29 Other secondary pulmonary hypertension; I27.81 Cor pulmonale (chronic); J44.9 Chronic obstructive pulmonary disease, unspecified; K21.9 Gastro-esophageal reflux disease without esophagitis; Z66 Do not resuscitate; Z82.49 Family history of ischemic heart disease and other diseases of the circulatory system; Z95.5 Presence of coronary angioplasty implant and graft; Z93.3 Colostomy status; Z99.81 Dependence on supplemental oxygen
CPT/HCPCS: 36415; 80048; 80053; 83735; 83880; 84443; 85025; 85027; 94640; 94760; J1940; J3475; 97110; 97116; 97530; 97535

== ENCOUNTER 2020-05-11 09:43 | Inpatient (IN) | payer MEDICARE ==
[~2020-05-11] VITALS: Ht 165.1 cm; Wt 81.1 kg
--- NOTE | 2020-05-11 10:22 | HP ---
ADMIT DATE: 05/11/2020 REHAB UNIT HISTORY AND PHYSICAL ATTENDING PHYSICIAN: Dr. Barreto. CHIEF COMPLAINT: Weakness. HISTORY OF PRESENT ILLNESS: The patient was admitted to the rehabilitation unit after spending 5 days on the acute floor. She presented 5 days ago with atrial fibrillation with rapid ventricular rate. Cardiology service has been consulted. Her heart rate resolved and she converted to a sinus rhythm. She has longstanding COPD and severe pulmonary hypertension. She has multiple medical issues along with generalized debilitation. PAST MEDICAL HISTORY: Significant for pulmonary hypertension with a PAP estimated at 92 mmHg. She is approaching Eisenmenger physiology. She has paroxysmal atrial fibrillation; congestive heart failure, acute on chronic, diastolic; severe tricuspid regurgitation; COPD, oxygen dependent; chronic respiratory failure; type 2 diabetes; and gastroesophageal reflux disease. ALLERGIES: She has no recorded or known drug allergies. CURRENT MEDICATIONS: Reviewed. She was on apixaban 5 mg b.i.d., castor oil emollient, budesonide inhaler, Klonopin p.r.n., digoxin 250 mcg daily, docusate, formoterol, Neurontin 300 mg daily, metoprolol 25 XL daily, multivitamin, Nicoderm patch, omega-3 fish oil, Protonix and MiraLax 17 g daily. SOCIAL HISTORY: Unfortunately, she continues to be a smoker. No alcohol use. Other medical issues include previous diverticulitis. She had a perforation of the colon. She had a recent ostomy placed and this is functioning. FAMILY HISTORY: Noncontributory. REVIEW OF SYSTEMS: Significant for the rapid atrial fibrillation, weakness, generalized anxiety, some confusion. Her appetite has been fair. Her ostomy is relatively new. She still has a hard time adjusting to where she needs constant care. All other systems reviewed and turned to be negative. PHYSICAL EXAMINATION: GENERAL: When I saw her, this is a pleasant elderly female. INITIAL VITAL SIGNS: On admission showed a blood pressure of 142/92, pulse is 72 and regular, temperature 97.7 degrees Fahrenheit, oxygen saturation 91% on 3 liters of supplemental oxygen by nasal cannula. HEENT: Head is without trauma. Pupils are reactive. Sclerae nonicteric. Oropharynx clear. NECK: Supple, no bruits. No stridor. LUNGS: Otherwise clear. CARDIOVASCULAR: Showed regular heart tones. No gallops. ABDOMEN: Soft, scaphoid, nontender. There is a functioning ostomy in the left mid quadrant. The ostomy site is clean. The stoma is pink and viable. EXTREMITIES: Show trace edema. NEUROLOGIC: Focally intact. Speech is fluent. The tendon reflexes were normal and symmetric in upper and lower extremities. LABORATORY DATA: Most recent laboratory studies were reviewed. Her hemoglobin on the day of admission was 8.9 g/dL with a white count of 4600. Electrolytes within normal range. Creatinine 1.2 mg/dL. ASSESSMENT: 1. This 79-year-old female has atrial fibrillation with rapid ventricular rate, controlled. 2. Acute on chronic congestive heart failure, diastolic, compensated. 3. Acute on chronic hypercarbic respiratory failure, stable. 4. Oxygen-dependent chronic obstructive pulmonary disease. 5. Pulmonary hypertension approaching Eisenmenger physiology. 6. Anemia of chronic disease. 7. Type 2 diabetes. 8. Gastroesophageal reflux disease. 9. Recent perforated diverticulitis with resection and placement of a colostomy. 10. Chronic anemia of chronic disease. PLAN: 1. Admit to the rehabilitation unit. 2. Physical therapy for strengthening. 3. Home meds continued including new apixaban for paroxysmal atrial fibrillation. We will keep an eye on her ostomy site for any blood loss and get followup hemoglobins, probably weekly. 4. Diet as tolerated. JARET BARRETO MD DR: JEYSON/analy JOB#: [id number] / [id number] ROMAN Levin MD
[2020-05-11] MEDS ORDERED: BUDESONIDE 0.5 MG/2 ML NEBU ONE (10:55)
--- NOTE | 2020-05-11 11:02 | NUR ---
NSG NOTE; ADMISSION ADMITTED FROM [facility] TO SKILLED UNIT AT 1045. PT WILL STAY IN HER CURRENT ROOM 105
[2020-05-11 11:19] VITALS: BP 139/57
[2020-05-11] MEDS ORDERED: DOCUSATE SODIUM 100 MG CAPSULE PO PRN (11:30)
--- NOTE | 2020-05-11 11:40 | NUR ---
Swing Bed Admission Patient Handbook for Alf given to patient. Nursing Problem: Weakness and deconditioning after extensive recent hospitalization for colon resection/sepsis/afib rvr/acute on chronic chf episodes. New colostomy requiring education for patient and family on care Cognitive/Behavioral: A&O x4, occ forgetful, pleasant and cooperative, family extensively involved in pt's care, Pain: c/o occ abd pain sec colon resection, oxycodone prn but has not requested any today Respiratory Status: lungs clear but diminished, at home baseline of 3-4 L O2 NC (4L with exertion), SOA with exertion, no cough Skin: thin and fragile, midline abd incision healing well, coccyx reddened but blanchable-lotion applied and pt educated about self TQ2H Bowel/Bladder Continence: new colostomy LUQ with bag intact, soft stool in bag, pt refusing to learn how to take care of ostomy and states her daughter and granddaughter will be doing the care. daughter Christiane BEE works here at [employer] [facility] and will be able to help pt but pt will be home alone when family is working so needs to know how to take care of the ostomy herself, wound care consult saw pt and family while pt was in acute status and ostomy education will be continued by nursing staff at this point. Stress incont of bladder if pt waits too long to go to BR ADL Functional Status: weak and deconditioned sec to recent long hospitalization. staff set up of tray for meals/pt feeds self, appetite fair, needs one person assist to BR with walker and to amb in mchugh-must have O2 at all times Fall(s) prior to admission? denies falls in last 6 months Admitted from [facility] where she had been flipped to inpatient status from Swing bed unit for CHF episode.
[2020-05-11 19:21] VITALS: BP 117/55
[2020-05-11] MEDS: BUDESONIDE 0.5 MG/2 ML NEBU NEB SCH (20:36)
[2020-05-11] MEDS: GABAPENTIN 300 MG CAPSULE. PO SCH (20:42)
[2020-05-11] MEDS: METOPROLOL TART IMMED RELEASE 25 MG TABLET PO SCH (20:42)
[2020-05-11] MEDS: APIXABAN 5 MG TABLET. PO SCH (20:42)
[2020-05-11] MEDS: oxyCODONE/APAP 5/325 1 TAB TABLET PO PRN (20:43)
[2020-05-11] MEDS ORDERED: CASTOR OIL TP SCH (21:00)
[2020-05-11] MEDS ORDERED: BALSAM PERU TP SCH (21:00)
[2020-05-11] MEDS ORDERED: NON FORMULARY ITEM (Formoterol Fumarate (Perforomist) 20 MCG) IH SCH (21:00)
--- NOTE | 2020-05-11 21:28 | NUR ---
Swing Bed Admission Patient Handbook for Long-Term given to patient. Nursing Problem: Weakness and deconditioning after extensive recent hospitalization for colon resection/sepsis/afib rvr/acute on chronic chf episodes. New colostomy requiring education for patient and family on care Cognitive/Behavioral: A&O x4, occ forgetful, pleasant and cooperative, family extensively involved in pt's care, Pain: c/o occ abd pain sec colon resection, oxycodone prn given HS Respiratory Status: lungs clear but diminished, at home baseline of 3-4 L O2 NC (4L with exertion), SOA with exertion, no cough Skin: thin and fragile, midline abd incision healing well, coccyx reddened but blanchable-lotion applied and pt educated about self TQ2H Bowel/Bladder Continence: new colostomy LUQ with bag intact, soft stool in bag, pt refusing to learn how to take care of ostomy and states her daughter and granddaughter will be doing the care. daughter Christiane BEE works here at [employer] and will be able to help pt but pt will be home alone when family is working so needs to know how to take care of the ostomy herself, wound care consult saw pt and family while pt was in acute status and ostomy education will be continued by nursing staff at this point. Stress incont of bladder if pt waits too long to go to BR ADL Functional Status: set up of tray for meals/pt feeds self, appetite fair, needs one person assist to BR with walker and to amb in mchugh-must have O2 at all times Fall(s) prior to admission? denies falls in last 6 months Admitted from [facility] where she had been flipped to inpatient status from Swing bed unit for CHF episode.
[2020-05-12 08:00] VITALS: BP 125/63
[2020-05-12] MEDS: POLYETHYLENE GLYCOL 3350 17 GM PACKET. PO SCH (08:12)
[2020-05-12] MEDS: clonazePAM 0.5 MG TABLET PO SCH (08:13)
[2020-05-12] MEDS: APIXABAN 5 MG TABLET. PO SCH ×2 (08:13→20:32)
[2020-05-12] MEDS: MULTIVITAMIN with MINERAL TABLET. PO SCH (08:13)
[2020-05-12] MEDS: PANTOPRAZOLE 40 MG TABLET. PO SCH (08:16)
[2020-05-12] MEDS: OMEGA-3 FATTY ACIDS/FISH OIL 1,000 MG CAPSULE. PO SCH (08:16)
[2020-05-12] MEDS: FUROSEMIDE 40 MG TABLET PO SCH (08:16)
[2020-05-12] MEDS: METOPROLOL TART IMMED RELEASE 25 MG TABLET PO SCH ×2 (08:18→20:32)
[2020-05-12] MEDS: NICOTINE 21MG PATCH. TD SCH (08:20)
[2020-05-12] MEDS: BUDESONIDE 0.5 MG/2 ML NEBU NEB SCH ×2 (10:02→21:03)
--- NOTE | 2020-05-12 17:39 | NUR ---
Swing Bed Note Patient Handbook for Shelter given to patient. Nursing Problem: Weakness and deconditioning after extensive recent hospitalization for colon resection/sepsis/afib rvr/acute on chronic chf episodes. New colostomy requiring education for patient and family on care Cognitive/Behavioral: A&O x4, occ forgetful, pleasant and cooperative, family extensively involved in pt's care, Pain: c/o occ abd pain sec colon resection, oxycodone prn given HS Respiratory Status: lungs clear but diminished, at home baseline of 3-4 L O2 NC (4L with exertion), SOA with exertion, no cough Skin: thin and fragile, midline abd incision healing well, coccyx reddened but blanchable-lotion applied and pt educated about self TQ2H Bowel/Bladder Continence: new colostomy LUQ with bag intact, soft stool in bag, pt refusing to learn how to take care of ostomy and states her daughter and granddaughter will be doing the care. daughter Christiane BEE works here at [employer] and will be able to help pt but pt will be home alone when family is working so needs to know how to take care of the ostomy herself, wound care consult saw pt and family while pt was in acute status and ostomy education will be continued by nursing staff at this point. Stress incont of bladder if pt waits too long to go to BR ADL Functional Status: set up of tray for meals/pt feeds self, appetite fair, needs one person assist to BR with walker and to amb in mchugh-must have O2 at all times Fall(s) prior to admission? denies falls in last 6 months Admitted from [facility] where she had been flipped to inpatient status from Swing bed unit for CHF episode.
[2020-05-12 19:37] VITALS: BP 138/70
[2020-05-12] MEDS: oxyCODONE/APAP 5/325 1 TAB TABLET PO PRN (20:31)
[2020-05-12] MEDS: GABAPENTIN 300 MG CAPSULE. PO SCH (20:32)
[2020-05-13] MEDS: oxyCODONE/APAP 5/325 1 TAB TABLET PO PRN ×2 (05:19→20:05)
[2020-05-13] MEDS: clonazePAM 0.5 MG TABLET PO SCH (07:44)
[2020-05-13] MEDS: MULTIVITAMIN with MINERAL TABLET. PO SCH (07:44)
[2020-05-13] MEDS: OMEGA-3 FATTY ACIDS/FISH OIL 1,000 MG CAPSULE. PO SCH (07:44)
[2020-05-13] MEDS: FUROSEMIDE 40 MG TABLET PO SCH (07:44)
[2020-05-13] MEDS: POLYETHYLENE GLYCOL 3350 17 GM PACKET. PO SCH (07:44)
[2020-05-13] MEDS: METOPROLOL TART IMMED RELEASE 25 MG TABLET PO SCH ×2 (07:45→20:05)
[2020-05-13] MEDS: APIXABAN 5 MG TABLET. PO SCH ×2 (07:45→20:04)
[2020-05-13] MEDS: PANTOPRAZOLE 40 MG TABLET. PO SCH (07:45)
[2020-05-13] MEDS: NICOTINE 21MG PATCH. TD SCH (07:45)
--- NOTE | 2020-05-13 08:49 | NUR ---
Swing Bed Note Nursing Problem: Weakness and deconditioning after extensive recent hospitalization for colon resection/sepsis/afib rvr/acute on chronic chf episodes. New colostomy requiring education for patient and family on care Cognitive/Behavioral: A&O x4, occ forgetful, pleasant and cooperative, family extensively involved in pt's care, Pain: no pain noted at this time. Respiratory Status: lungs clear but diminished, at home baseline of 3-4 L O2 NC (4L with exertion), SOA with exertion, no cough Skin: thin and fragile, midline abd incision healed, coccyx reddened but blanchable-lotion applied and pt educated about self TQ2H Bowel/Bladder Continence: new colostomy LUQ with bag intact, soft stool in bag, pt refusing to learn how to take care of ostomy and states her daughter and granddaughter will be doing the care. daughter Christiane BEE works here at [employer] [facility] and will be able to help pt but pt will be home alone when family is working so needs to know how to take care of the ostomy herself, wound care consult saw pt and family while pt was in acute status and ostomy education will be continued by nursing staff at this point. Stress incont of bladder if pt waits too long to go to BR ADL Functional Status: set up of tray for meals/pt feeds self, appetite fair, needs one person assist to BR with walker and to amb in mchugh-must have O2 at all times Fall(s) prior to admission? denies falls in last 6 months Admitted from [facility] where she had been flipped to inpatient status from Swing bed unit for CHF episode.
[2020-05-13 09:18] VITALS: BP 111/64
[2020-05-13] MEDS: BUDESONIDE 0.5 MG/2 ML NEBU NEB SCH ×2 (09:55→20:30)
[2020-05-13 20:01] VITALS: BP 103/45
[2020-05-13] MEDS: GABAPENTIN 300 MG CAPSULE. PO SCH (20:04)
[2020-05-14] MEDS: clonazePAM 0.5 MG TABLET PO SCH (07:39)
[2020-05-14] MEDS: APIXABAN 5 MG TABLET. PO SCH ×2 (07:39→20:44)
[2020-05-14] MEDS: OMEGA-3 FATTY ACIDS/FISH OIL 1,000 MG CAPSULE. PO SCH (07:39)
[2020-05-14] MEDS: FUROSEMIDE 40 MG TABLET PO SCH (07:39)
[2020-05-14] MEDS: MULTIVITAMIN with MINERAL TABLET. PO SCH (07:40)
[2020-05-14] MEDS: PANTOPRAZOLE 40 MG TABLET. PO SCH (07:40)
[2020-05-14] MEDS: METOPROLOL TART IMMED RELEASE 25 MG TABLET PO SCH ×2 (07:40→20:45)
[2020-05-14] MEDS: NICOTINE 21MG PATCH. TD SCH (07:40)
[2020-05-14] MEDS: oxyCODONE/APAP 5/325 1 TAB TABLET PO PRN ×3 (07:41→20:44)
[2020-05-14] MEDS: POLYETHYLENE GLYCOL 3350 17 GM PACKET. PO SCH (07:43)
[2020-05-14 08:34] VITALS: BP 92/47
[2020-05-14] MEDS: BUDESONIDE 0.5 MG/2 ML NEBU NEB SCH ×2 (09:00→20:19)
--- NOTE | 2020-05-14 11:52 | NUR ---
Swing Bed Note Patient Handbook for Residential given to patient. Nursing Problem: PT ADMIT FROM [facility] WITH DX OF CHF AND WEAKNESS AND DECONDITIONING AFTER HOSPITALIZATION FOR COLON RESECTION/SEPSIS/AFIB RVR/CHF. NEW OSTOMY CARE AND EDUCATION Cognitive/Behavioral: PT IS A&O X4 THIS AM, CALM AND COOPERATIVE WITH ALL CARES AND PT/OT REQUIREMENTS THUS FAR. Pain: PRN OXYCODONE GIVEN THIS AM PER PT REQUEST PAIN 4-5/10 FOR CHRONIC PAIN WELL SOME ABD DISCOMFORT. Respiratory Status: LUNGS CLEAR, DIMINISHED, PT USES 3-4 LITERS OF OXYGEN AT HOME, SOA ON EXERTION 4 L WHEN AMBULATING Skin: THIN AND FRAGILE, COCCYX RED, CREAM APPLIED, PT IS INDEPENDENT IN HER BED WITH TURNING, PT SITTING UP IN CHAIR. PT ENCOURAGED TO ELEVATE HER LEGS ON FOOT STOOL THAT IS IN HER ROOM WHEN UP IN CHAIR D/T SWELLING IN HER LEGS. PT ENCOURAGED TO ELEVATE HER LEGS WHEN IN BED ON A PILLOW. PT HAS 2-3+ EDEMA IN HER LEGS. Bowel/Bladder Continence: PT IS STRESS INCONTINENT AT TIMES, DOES GET UP TO USE RESTROOM DURING DAY FOR THE MOST PART, PT HAS NEW OSTOMY, CDI BAG, STOOL IS SOFT AND BROWN THIS AM, PT STATES HER DAUGHTER WILL HELP CARE FOR HER AT HOME, PT DOES NEED ADDITIONAL OSTOMY CARE EDUCATION THROUGHOUT STAY. ADL Functional Status: PT IS INDEPENDENT WITH BED MOBILITY, PT IS INDEPENDENT WITH HER MEALS, PT REQUIRES X1 ASSIST WHEN AMBULATING TO MANEUVER OXYGEN TANK FROM ROOM TO BATHROOM. PT USES WALKER AND GAIT BELT AND HAS BEEN AMBULATED WITH PT/OT THIS AM DOING WELL. PT IS ABLE TO PUT HER GOWNS ON AND OFF HERSELF, AND CAN CLEAN UP AFTER HERSELF IN THE RESTROOM AND IS STAND BY ASSIST ONLY AT THIS TIME. Fall(s) prior to admission? DENIES. WILL CONTINUE TO MONITOR. OSWALD MEADE.
[2020-05-14 20:08] VITALS: BP 105/46
[2020-05-14] MEDS: GABAPENTIN 300 MG CAPSULE. PO SCH (20:44)
[2020-05-15] MEDS: NICOTINE 21MG PATCH. TD SCH (07:38)
[2020-05-15] MEDS: PANTOPRAZOLE 40 MG TABLET. PO SCH (07:38)
[2020-05-15] MEDS: oxyCODONE/APAP 5/325 1 TAB TABLET PO PRN ×2 (07:38→20:55)
[2020-05-15] MEDS: POLYETHYLENE GLYCOL 3350 17 GM PACKET. PO SCH (07:38)
[2020-05-15] MEDS: OMEGA-3 FATTY ACIDS/FISH OIL 1,000 MG CAPSULE. PO SCH (07:38)
[2020-05-15] MEDS: clonazePAM 0.5 MG TABLET PO SCH (07:38)
[2020-05-15] MEDS: METOPROLOL TART IMMED RELEASE 25 MG TABLET PO SCH ×2 (07:39→20:52)
[2020-05-15] MEDS: APIXABAN 5 MG TABLET. PO SCH ×2 (07:39→20:51)
[2020-05-15] MEDS: MULTIVITAMIN with MINERAL TABLET. PO SCH (07:39)
[2020-05-15] MEDS: FUROSEMIDE 40 MG TABLET PO SCH (07:39)
[2020-05-15] MEDS: BUDESONIDE 0.5 MG/2 ML NEBU NEB SCH ×2 (09:42→19:38)
[2020-05-15 10:54] VITALS: BP 154/64
--- NOTE | 2020-05-15 16:09 | NUR ---
Swing Bed Note Patient Handbook for Assisted given to patient. Nursing Problem: PT ADMIT FROM [facility] WITH DX OF CHF AND WEAKNESS AND DECONDITIONING AFTER HOSPITALIZATION FOR COLON RESECTION/SEPSIS/AFIB RVR/CHF. NEW OSTOMY CARE AND EDUCATION Cognitive/Behavioral: PT IS A&O, CALM AND COOPERATIVE WITH ALL CARES AND PT/OT REQUIREMENTS THUS FAR. Pain: PRN OXYCODONE GIVEN THIS AM Respiratory Status: LUNGS CLEAR, DIMINISHED, PT USES 3-4 LITERS OF OXYGEN AT HOME, SOA ON EXERTION 4 L WHEN AMBULATING. PT TODAY DROPPED TO HIGH 60'S AND LOW 70'S, PT GIVEN SIMPLE MASK TO USE BECAUSE SHE BREATHES THROUGH HER MOUTH AND NOT HER NOSE. WILL ENCOURAGE PT TO USE THE SIMPLE MASK WHEN UP WORKING WITH PT/OT. Skin: THIN AND FRAGILE, CREAM TO BOTTOM. PT IS INDEPENDENT IN HER BED. PT ENCOURAGED TO ELEVATE HER FEET WHEN UP IN CHAIR. Bowel/Bladder Continence: PT AMBULATES TO RESTROOM. PT HAS OSTOMY. PER DR BARRETO, DAILY SCHEDULED [facility] DC'D PER DR BARREOT. ADL Functional Status: PT IS INDEPENDENT WITH HER MEALS, UP IN CHAIR FOR MEALS, TAKES MEDS WHOLE, PT IS COOPERATIVE WITH ALL CARES. PT DOES NOT LIKE TO SHOWER BUT ONLY TWICE WEEKLY DUE TO SKIN DRYNESS PER TATTOO DESIGNER ACCORDING TO PT AND REFUSED SHOWER. PT IS STAND BY ONLY ASSIST TO HELP CARRY OXYGEN TANK ROLLER. Fall(s) prior to admission? DENIES. WILL CONTINUE TO MONITOR. OSWALD MEADE.
[2020-05-15 19:35] VITALS: BP 113/49
[2020-05-15] MEDS: GABAPENTIN 300 MG CAPSULE. PO SCH (20:51)
--- NOTE | 2020-05-15 23:05 | NUR ---
Swing Bed Nursing Note Nursing Problem: Weakness secondary to surgery new colostomy. COPD, on 4 liters O2. Cognitive/Behavioral: Pleasant alert and oriented Pain: Complains of pain to her abdomen, 6/10 percocet given for pain, now resting. Respiratory Status: Poor, lungs diminished throughout, requires significant amounts of 02 and still Soa Skin: Intact, coccyx reddened, colostomy, Bowel/Bladder Continence: Ostomy, continent ADL Functional Status: SBA
[2020-05-16] MEDS: oxyCODONE/APAP 5/325 1 TAB TABLET PO PRN ×3 (03:56→20:08)
[2020-05-16] MEDS: FUROSEMIDE 40 MG TABLET PO SCH (08:22)
[2020-05-16] MEDS: APIXABAN 5 MG TABLET. PO SCH ×2 (08:22→20:09)
[2020-05-16] MEDS: PANTOPRAZOLE 40 MG TABLET. PO SCH (08:22)
[2020-05-16] MEDS: MULTIVITAMIN with MINERAL TABLET. PO SCH (08:23)
[2020-05-16] MEDS: METOPROLOL TART IMMED RELEASE 25 MG TABLET PO SCH ×2 (08:23→20:08)
[2020-05-16] MEDS: OMEGA-3 FATTY ACIDS/FISH OIL 1,000 MG CAPSULE. PO SCH (08:23)
[2020-05-16] MEDS: clonazePAM 0.5 MG TABLET PO SCH (08:24)
[2020-05-16] MEDS: NICOTINE 14MG PATCH. TD SCH (08:24)
[2020-05-16 08:25] VITALS: BP 127/65
[2020-05-16] MEDS: BUDESONIDE 0.5 MG/2 ML NEBU NEB SCH ×2 (08:46→20:12)
--- NOTE | 2020-05-16 16:39 | NUR ---
Swing Bed Daily Note; Patient Handbook for Nursing Home given to patient on admission Nursing Problem: Weakness and deconditioning after extensive recent hospitalization for colon resection/sepsis/afib rvr/acute on chronic chf episodes. New colostomy requiring education for patient and family on care Cognitive/Behavioral: A&O x4, occ forgetful, pleasant and cooperative, family extensively involved in pt's care Pain: c/o occ abd pain sec colon resection, oxycodone prn given this am with good results Respiratory Status: lungs clear but diminished, at home baseline of 3-4 L O2 NC (4L with exertion), SOA with exertion, no cough, able to amb longer distances without SOA Skin: thin and fragile, midline abd incision healing well, coccyx reddened but blanchable-lotion applied and pt educated about self TQ2H Bowel/Bladder Continence: new colostomy LUQ with bag intact, soft stool in bag, pt refusing to learn how to take care of ostomy and states her daughter and granddaughter will be doing the care. daughter Christiane BEE works here at [facility] and will be able to help pt but pt will be home alone when family is working so needs to know how to take care of the ostomy herself. Stress incont of bladder if pt waits too long to go to BR ADL Functional Status: weak and deconditioned sec to recent long hospitalization. staff set up of tray for meals/pt feeds self, appetite fair, needs one person assist to BR with walker and to amb in [place]ugh-must have O2 at all times Fall(s) prior to admission? denies falls in last 6 months Admitted from [facility] where she had been flipped to inpatient status from Swing bed unit for CHF episode.
[2020-05-16 19:58] VITALS: BP 153/61
[2020-05-16] MEDS: GABAPENTIN 300 MG CAPSULE. PO SCH (20:09)
--- NOTE | 2020-05-17 01:42 | PN ---
DATE: 05/16/2020 SUBJECTIVE: The patient is resting, slightly propped up in bed, in no apparent distress. On questioning her, denied any complaint. Nursing staff did not voice any concerns that she is generally doing much better. Denied any chest pain or shortness of breath. Her heart rate is well controlled and apparently she is scheduled to be discharged home with home health tomorrow. PHYSICAL EXAMINATION: GENERAL: When I examined her, she looked somewhat pale. No jaundice, cyanosis or thyromegaly. No jugular venous distention. No lower limb edema. VITAL SIGNS: Her heart rate was 73, blood pressure was 127/65, temperature 97.9, respiratory rate was 20 and oxygen saturation was 93% on 3.5 liters of oxygen. HEAD, EYES, EARS, NOSE AND THROAT: Normocephalic, atraumatic. NECK: Supple. HEART: Normal first and second heart sounds. No gallop or murmur. CHEST: Showed central trachea, equally reduced expansion, reduced air entry, vesicular sounds. I could not appreciate any crepitation or rhonchi. ABDOMEN: Distended, soft, nontender. NEUROLOGIC: She is awake, alert, responding appropriately. All cranial nerves intact. She moves extremities without difficulty. She ambulates with a walker. Her intake over the last 24 hours was 814, output was recorded. LABORATORY DATA: Her most recent lab work showed white cell count 4600, hemoglobin 9, hematocrit 29, MCV 87 and platelet count 209,000. Her most recent chemistry showed a serum sodium 139, potassium 3.8, chloride 95, bicarbonate 42, anion gap of 2, BUN 13, creatinine 1.2, estimated GFR was 43 mL per minute. Her calcium was 8.3. ASSESSMENT: 1. Atrial fibrillation, rate controlled, well anticoagulated. 2. Acute on chronic congestive heart failure, diastolic, well compensated. 3. Acute on chronic hypercapnic respiratory failure, stable. 4. Oxygen-dependent chronic obstructive pulmonary disease. 5. Pulmonary hypertension with pulmonary artery pressure of 92 mmHg. 6. Anemia of chronic disease. 7. Type 2 diabetes mellitus. 8. Gastroesophageal reflux disease. 9. Recent perforated diverticulitis with resection and placement of a colostomy. 10. Chronic anemia of chronic disease. PLAN: To continue with all her current medications. Continue with physical and occupational therapy. She is scheduled to be discharged home tomorrow with home health. ROMAN JAMES MD DR: MAGDALENE/analy JOB#: [id number] / [id number]
--- NOTE | 2020-05-17 02:59 | NUR ---
Swing Bed Note Nursing Problem: Weakness and deconditioning after extensive recent hospitalization for colon resection/sepsis/afib rvr/acute on chronic chf episodes. New colostomy requiring education for patient and family on care. Cognitive/Behavioral: A&Ox4, forgetful at times. Pt sitting up in bed watching TV, pleasant and talkative when approached for assessment. No behaviors noted. Pt hopes to return home tomorrow with daughter planning to stay with her for support. Pain: Pt c/o generalized abd pain sec to colon resection, PRN percocet given at HS. Med effective. Pt has rested comfortably throughout shift. Respiratory Status: Lungs clear but diminished, at home baseline of 3-4 L O2 NC (4L with exertion). SOA with exertion, no cough. Skin: Thin and fragile, midline abd incision healing well, coccyx reddened but blanchable-lotion applied. Pt turning self in bed. Bowel/Bladder Continence: new colostomy LUQ with bag intact, soft stool in bag, pt refusing to learn how to take care of ostomy and states her daughter and granddaughter will be doing the care. daughter Christiane BEE works here at [employer] and will be able to help pt but pt will be home alone when family is working so needs to know how to take care of the ostomy herself. Stress incont of bladder if pt waits too long to go to BR. ADL Functional Status: weak and deconditioned sec to recent long hospitalization. needs one person assist to BR with walker and to amb in m[place]ugh-must have O2 at all times. meds whole. declined HS snack.
[2020-05-17] MEDS: oxyCODONE/APAP 5/325 1 TAB TABLET PO PRN (07:34)
[2020-05-17] MEDS: APIXABAN 5 MG TABLET. PO SCH (07:34)
[2020-05-17] MEDS: OMEGA-3 FATTY ACIDS/FISH OIL 1,000 MG CAPSULE. PO SCH (07:34)
[2020-05-17] MEDS: METOPROLOL TART IMMED RELEASE 25 MG TABLET PO SCH (07:35)
[2020-05-17] MEDS: FUROSEMIDE 40 MG TABLET PO SCH (07:35)
[2020-05-17] MEDS: MULTIVITAMIN with MINERAL TABLET. PO SCH (07:35)
[2020-05-17] MEDS: clonazePAM 0.5 MG TABLET PO SCH (07:36)
[2020-05-17] MEDS: PANTOPRAZOLE 40 MG TABLET. PO SCH (07:36)
[2020-05-17] MEDS: NICOTINE 14MG PATCH. TD SCH (07:36)
[2020-05-17 08:06] VITALS: BP 140/68
[2020-05-17] MEDS: BUDESONIDE 0.5 MG/2 ML NEBU NEB SCH (11:22)
--- NOTE | 2020-05-17 12:36 | NUR ---
NURSING NOTE: DISCHARGE PT DC AT 1230 VIA WHEELCHAIR ACCOMPANIED BY DAUGHTER. VERBAL AND WRITTEN DISCHARGE INSTRUCTIONS GIVEN, VERBAL UNDERSTANDING RECEIVED. RX FOR OXYCODONE AND CLONAZEPAM SENT WITH PATIENT, METOPROLOL CALLED INTO [facility]. PT WAS IN BED UPON MEDICATION ADMINISTRATION AND ASSESSMENT. PT RECEIVED SHOWER THIS AM PRIOR TO DC. PT COMPLIANT WITH MEDICATION. PT READY TO GO HOME. PT ATE BREAKFAST AND LUNCH WELL. PT DID NOT GET UP TO CHAIR TODAY BECAUSE SHE STATED IT HURTS HER LEGS TO SIT IN THE CHAIR. PT AMBULATED TO SHOWER AND TOILET TODAY. PT AWAKE WATCHING TV MOST OF DAY. OSWALD ADAN
--- NOTE | 2020-05-17 15:50 | DS ---
DATE OF DISCHARGE: 05/17/2020 HOSPITAL COURSE: The patient is a 79-year-old female patient who was admitted ____ to [facility], where she underwent takedown of colovesical fistula and sigmoid colectomy and colostomy and she did well and was transferred to swing bed to start the process of rehabilitation. She did well and has been up and about, ambulating with a walker. PHYSICAL EXAMINATION: GENERAL: When I saw her, she denied any complaints and nursing staff did not voice any concern. When I examined her, she was pale, not jaundiced, cyanosed or thyromegaly. No jugular venous distention. No limb edema. VITAL SIGNS: Her heart rate was 81, blood pressure was 140/68, temperature was 98.7, respiratory rate was 20, and oxygen saturation was 94% on 4 liters of oxygen. HEAD, EYES, EARS, NOSE AND THROAT: Showed normocephalic, atraumatic. NECK: Supple. HEART: Showed normal first and second heart sounds. No gallop or murmur. CHEST: Clear to auscultation. No crepitation or rhonchi. ABDOMEN: Distended, soft with colostomy in the left lower quadrant. NEUROLOGIC: She was awake, alert, responding appropriately. All cranial nerves intact. She moves all extremities without difficulty. She ambulates with a walker. Her intake over the last 24 hours was 616, no output was recorded. LABORATORY DATA: Her most recent lab work showed a white cell count 4600, hemoglobin 9, hematocrit 29, MCV 87, and platelet count 209,000. Her serum sodium was 139, potassium 3.8, chloride 95, bicarbonate 42, anion gap of 2, BUN 13, creatinine 1.2, estimated GFR was 43 mL per minute. DISCHARGE MEDICATIONS: The patient was discharged home with home health to continue on apixaban 5 mg twice a day, ____ emollient 3 g apply topically twice a day, Pulmicort by nebulizer 0.5 mg in 2 mL by nebulizer twice a day, clonazepam 0.5 mg once a day, Colace 100 mg twice a day, formoterol fumarate 20 mcg inhalation twice a day, furosemide 40 mg once a day, gabapentin 300 mg at bedtime, metoprolol succinate 25 mg once a day, multivitamin with mineral 1 tablet once a day. Nicoderm patch 21 mg topically daily, omega-3 fatty acid 1000 mg capsule 1 capsule once a day, oxycodone/APAP 5/325 one tablet every 4 hours and Protonix 40 mg daily. FINAL DISCHARGE DIAGNOSES: 1. Atrial fibrillation, rate controlled, well anticoagulated. 2. Acute on chronic diastolic congestive heart failure, well compensated. 3. Acute on chronic hypercapnic respiratory failure, stable. 4. Oxygen-dependent chronic obstructive pulmonary disease. 5. Pulmonary hypertension with pulmonary artery pressure of 92 mmHg. 6. Anemia of chronic disease. 7. Type 2 diabetes mellitus. 8. Gastroesophageal reflux disease. 9. Recently perforated diverticulitis with sigmoid resection. 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 ROMAN JAMES MD DR: MAGDALENE/analy JOB#: [id number] / [id number]
== END 2020-05-17 12:40 | disposition home health service (06) | DRG 947 ==
LOC: 1 SOUTH 10:39
PROVIDERS: ADMIT Hospitalist; ATTEND Internal Medicine
DX: R53.1 Weakness (principal); I50.33 Acute on chronic diastolic (congestive) heart failure; J96.22 Acute and chronic respiratory failure with hypercapnia; D63.8 Anemia in other chronic diseases classified elsewhere; E11.9 Type 2 diabetes mellitus without complications; F17.200 Nicotine dependence, unspecified, uncomplicated; I07.1 Rheumatic tricuspid insufficiency; I27.20 Pulmonary hypertension, unspecified; I48.0 Paroxysmal atrial fibrillation; J44.9 Chronic obstructive pulmonary disease, unspecified; Z66 Do not resuscitate; K21.9 Gastro-esophageal reflux disease without esophagitis; Z93.3 Colostomy status; Z99.81 Dependence on supplemental oxygen; Z79.899 Other long term (current) drug therapy
CPT/HCPCS: 94640; 94760; 97010; 97110; 97116; 97140; 97530; 97535